=== PATIENT | female | born 1945 | race Caucasian/White ===

== ENCOUNTER → 2016-10-08 | Outpatient (CLI) | payer OTHER ==
[~2016-10-08] MED LIST: ALPRAZOLAM0.5 M3 PO; AMLODIPINE BESY10 MG PO; ANAPROX DS550 MG PO; ATIVAN1 MG PO; BACTRIM DS 8001 TA1 PO; BUMETANIDE2 MG PO; CARVEDILOL3.125 MG PO; COREG12.5 M1 PO; COREG25 MG PO; DILANTIN; DILANTIN100 MG PO; DIOVAN HCT 25 M1 TA5 PO; DOXYCYCLINE100 M1; EPI-PEN1 MG/ML MR; HYDROCHLOROTHIA25 MG PO; HYDROCHLOROTHIAZIDE; HYZAAR 25 MG-101 TA1 PO; HYZAAR 50/12.5M1 TAB PO; Hyzaar 25 MG-101 TAB PO; K-DUR 20MEQ20 MEQ PO; KLOR-CON; LANSOPRAZOLE30 MG PO; LOPRESSOR25 MG PO; LOSARTAN HCTZ; LOSARTAN POTAS100 M1 PO; LOSARTAN POTAS100 MG; MOTRIN800 MG PO; OMEPRAZOLE DR20 M1; PHENYTOIN SODI100 MG PO; PRAVACHOL20 MG PO; PREVACID15 M1 PO; PREVACID30 MG PO; PRILOSEC20 MG PO; SEPTRA DS 800 M1 TAB PO; XARE20MG PO; ZANTAC150 MG PO
[2016-10-08 09:53] LABS: HEMATOCRIT 36.9 % (37.0-47.0); HEMOGLOBIN 11.8 g/dl (12.0-16.0); MEAN CELL VOLUME 92.5 fl (81.0-99.0); MEAN CORPUSCULAR HGB 29.6 pg (27.0-31.0); MEAN PLATELET VOLUME 10.7 fl (9.6-12.3); RED BLOOD COUNT 3.99 10*6/uL (4.10-5.10); RED CELL DISTRI WIDTH 13.2 % (0-14.5); WHITE BLOOD COUNT 7.3 10*3/uL (4.8-10.8)
[2016-10-08 10:05] LABS: CHOLESTEROL 227 mg/dL (<200); HDL CHOLESTEROL 69 mg/dl (40-60); LDL CHOLESTEROL 143 mg/dL (9-159); TRIGLYCERIDES 73 mg/dl (<150); VLDL CHOLESTEROL 15 mg/dL (6-40)
[2016-10-08 10:06] LABS: ALBUMIN 3.2 gm/dl (3.1-4.5); ALKALINE PHOSPHATASE 170 U/L (45-117); BILIRUBIN, TOTAL 0.3 mg/dl (0.2-1.0); BUN 13 mg/dl (7-24); CARBON DIOXIDE 30 mmol/L (21-32); CHLORIDE 108 mmol/L (98-107); EST GLOM FILT AFRICAN AMERICAN > 60 ml/min; GLUCOSE 91 mg/dL (65-99); POTASSIUM 3.8 mmol/L (3.5-5.1); SGOT/AST 13 IU/L (3-35); SGPT/ALT 14 U/L (12-78); SODIUM 145 mmol/L (136-145); TOTAL PROTEIN 7.3 gm/dL (6.4-8.2)
== END | disposition home or self-care (01) ==
LOC: LAB 09:16
PROVIDERS: Family Medicine
DX: I10 Essential (primary) hypertension (principal); E78.00 Pure hypercholesterolemia, unspecified; E55.9 Vitamin D deficiency, unspecified

== ENCOUNTER 2017-01-04 12:36 | Emergency (ER) | payer OTHER ==
[~2017-01-04] VITALS: Wt 89.8 kg
[2017-01-04 12:51] VITALS: BP 174/100
[2017-01-04] MEDS ORDERED: HYDROCHLOROTHIA25 M1 PO (12:53)
[2017-01-04] MEDS ORDERED: HYDROCODONE BIT1 T11 PO (14:46)
== END 2017-01-04 14:52 | disposition home or self-care (01) ==
LOC: ED 12:36
DX: M25.512 Pain in left shoulder (principal); Z90.49 Acquired absence of other specified parts of digestive tract; Z90.710 Acquired absence of both cervix and uterus; Z79.899 Other long term (current) drug therapy

== ENCOUNTER 2017-04-05 07:33 | Emergency (ER) | payer OTHER ==
[~2017-04-05] VITALS: Ht 157.4 cm; Wt 81.6 kg
[~2017-04-05 07:33] MED LIST changes: +HYDROCHLOROTHIA25 M1 PO; +HYDROCODONE BIT1 T11 PO
[2017-04-05 07:37] VITALS: BP 150/52
[2017-04-05] MEDS ORDERED: PREDNISONE50 MG PO (07:54)
== END 2017-04-05 08:05 | disposition home or self-care (01) ==
LOC: ED 07:33
DX: L25.9 Unspecified contact dermatitis, unspecified cause (principal); I48.91 Unspecified atrial fibrillation; Z90.49 Acquired absence of other specified parts of digestive tract; Z79.899 Other long term (current) drug therapy

== ENCOUNTER 2017-04-24 07:10 | Emergency (ER) | payer OTHER ==
[~2017-04-24] VITALS: Ht 157.4 cm; Wt 86.6 kg
[~2017-04-24 07:10] MED LIST changes: +PREDNISONE50 MG PO
[2017-04-24] MEDS ORDERED: PROPAFENONE HC225 MG PO (07:17)
[2017-04-24] MEDS ORDERED: OMEPRAZOLE40 MG PO (07:18)
[2017-04-24] MEDS ORDERED: VITAMIN D32000 UNIT PO (07:18)
[2017-04-24] MEDS ORDERED: LABETALOL HCL100 MG PO (07:18)
[2017-04-24 07:19] VITALS: BP 149/52
[2017-04-24] MEDS ORDERED: BENADRYL ALLERG25 M5 PO (07:32)
[2017-04-24] MEDS ORDERED: PREDNISONE20 M1 PO (07:32)
== END 2017-04-24 07:47 | disposition home or self-care (01) ==
LOC: ED 07:10
DX: L23.9 Allergic contact dermatitis, unspecified cause (principal); I48.91 Unspecified atrial fibrillation; Z90.710 Acquired absence of both cervix and uterus; Z90.49 Acquired absence of other specified parts of digestive tract; Z79.899 Other long term (current) drug therapy

== ENCOUNTER → 2017-06-16 | Outpatient (CLI) | payer OTHER ==
[~2017-06-16] MED LIST changes: +BENADRYL ALLERG25 M5 PO; +LABETALOL HCL100 MG PO; +OMEPRAZOLE40 MG PO; +PREDNISONE20 M1 PO; +PROPAFENONE HC225 MG PO; +VITAMIN D32000 UNIT PO
== END | disposition home or self-care (01) ==
LOC: LAB 10:48
DX: T42.0X1A Poisoning by hydantoin derivatives, accidental (unintentional), initial encounter (principal)

== ENCOUNTER → 2017-06-30 | Outpatient (CLI) | payer OTHER | END | disposition home or self-care (01) | LOC: LAB 10:08 | DX: Z02.83 Encounter for blood-alcohol and blood-drug test (principal); T42.0X5A Adverse effect of hydantoin derivatives, initial encounter ==

== ENCOUNTER → 2017-07-08 | Outpatient (CLI) | payer OTHER | END | disposition home or self-care (01) | LOC: LAB 09:01 | DX: G40.909 Epilepsy, unspecified, not intractable, without status epilepticus (principal) ==

== ENCOUNTER → 2017-08-07 | Outpatient (CLI) | payer OTHER ==
[2017-08-07 10:05] LABS: BUN 7 mg/dl (7-24); CHLORIDE 104 mmol/L (98-107); PHENYTOIN (DILANTIN) 18.3 ug/ml (10-20); POTASSIUM 3.8 mmol/L (3.5-5.1); SODIUM 142 mmol/L (136-145)
== END | disposition home or self-care (01) ==
LOC: LAB 09:11
PROVIDERS: Internal Medicine
DX: G40.909 Epilepsy, unspecified, not intractable, without status epilepticus (principal); E87.6 Hypokalemia

== ENCOUNTER → 2017-08-26 | Outpatient (CLI) | payer OTHER | END | disposition home or self-care (01) | LOC: LAB 09:07 | DX: G40.909 Epilepsy, unspecified, not intractable, without status epilepticus (principal) ==

== ENCOUNTER → 2017-09-05 | Outpatient (CLI) | payer OTHER | END | disposition home or self-care (01) | LOC: US 12:38 | DX: N18.3 Chronic kidney disease, stage 3 (moderate) (principal) ==

== ENCOUNTER 2017-09-10 18:17 | Emergency (ER) | payer OTHER ==
[~2017-09-10] VITALS: Ht 157.4 cm; Wt 68.5 kg
[2017-09-10 18:30] VITALS: BP 190/48
== END 2017-09-10 21:51 | disposition home or self-care (01) ==
LOC: ED 18:17
DX: S80.12XA Contusion of left lower leg, initial encounter (principal); Z90.49 Acquired absence of other specified parts of digestive tract; Z79.899 Other long term (current) drug therapy; Z90.710 Acquired absence of both cervix and uterus; W17.89XA Other fall from one level to another, initial encounter; Y93.89 Activity, other specified; Y92.89 Other specified places as the place of occurrence of the external cause; Y99.8 Other external cause status

== ENCOUNTER 2017-12-20 09:47 | Inpatient (IN) | payer OTHER ==
[~2017-12-20] VITALS: Ht 157 cm; Wt 68.0 kg
--- NOTE | ~2017-12-20 | EKG ---
[place], [place] ELECTROCARDIOGRAM REPORT NAME: ANGEL RODRIGEZ UNIT #: [id number] ROOM: 503 DOCTOR: GIORGI OLSON MD BIRTHDATE: [birth year] DOS: 12/20/2017 TIME: 1535 hours. FINDINGS: 1. Sinus bradycardia at 48 beats per minute. 2. Minimal criteria for LVH. 3. Nonspecific T-waves in chest leads. 4. No significant change from an ECG done earlier in the day. GIORGI OLSON MD CM:EKGRPT:ELECTROCARDIOGRAM REPORT 1350 1828 GIORGI OLSON MD
--- NOTE | ~2017-12-20 | EKG ---
[place], [place] ELECTROCARDIOGRAM REPORT NAME: ANGEL RODRIGEZ UNIT #: [id number] ROOM: 503 DOCTOR: GIORGI OLSON MD BIRTHDATE: [birth year] DOS: 12/20/2017 TIME: 1333 hours. FINDINGS: 1. Now is sinus bradycardia at 48 beats per minute. 2. Minimal criteria for LVH. 3. An abnormal ECG. 4. No significant change from the ECG done earlier in the day. GIORGI OLSON MD CM:EKGRPT:ELECTROCARDIOGRAM REPORT 1350 1827 GIORGI OLSON MD
--- NOTE | ~2017-12-20 | EKG ---
[place], [place] ELECTROCARDIOGRAM REPORT NAME: ANGEL RODRIGEZ UNIT #: [id number] ROOM: 503 DOCTOR: GIORGI OLSON MD BIRTHDATE: [birth year] DOS: 12/20/2017 TIME: 0952 hours. FINDINGS: 1. Normal sinus rhythm at 55 beats per minute. 2. Minimal prolonged QRS interval. 3. Minimal criteria for LVH. 4. No previous tracing is available for comparison. GIORGI OLSON MD CM:EKGRPT:ELECTROCARDIOGRAM REPORT 1350 1825 GIORGI OLSON MD
--- NOTE | ~2017-12-20 | CON ---
[place], [place] REPORT OF CONSULTATION NAME[id number] UNIT #: [id number] ROOM: 503 DOCTOR: GIORGI OLSON MD BIRTHDATE: [birth year] DOS: 12/20/2017 HISTORY OF PRESENT ILLNESS: This is a very pleasant 72-year-old -[place] woman with a history of atrial fibrillation, but has been in sinus rhythm. She has never had a heart attack, heart failure or cancer. No COPD. She has essential hypertension and also has a seizure disorder. She had electrical cardioversion in the remote past. She has had a hysterectomy, cardiac catheterization with no significant coronary artery problems and cholecystectomy. She was working in the house and bent over to pickling operator something and had pinch like feeling over the left lateral part of the chest and in the left armpit. She got up and the feeling disappeared in about 3 minutes. She leaned over to pickling operator a stool and same thing happened again, pain disappeared rather rapidly. There was no accompanying nausea, sweating, shortness of breath, or palpitations. She has not had any swelling of the lower extremities or orthopnea. She is a very active lady without any cardiac symptoms. She has never smoked cigarettes, never used alcoholic beverages. HOME MEDICATIONS: Include Xarelto 20 daily, propafenone 225 mg every 8 hours, omeprazole 40 mg daily, phenytoin, hydrochlorothiazide, labetalol 100 at bedtime, amlodipine 10 mg daily. PHYSICAL EXAMINATION: GENERAL: This reveals a patient who is very pleasant, alert. She is full of life, very lively, good complexion. There is no jaundice or cyanosis. Thyromegaly is not present. There is no finger clubbing. VITAL SIGNS: Pulse is 54 regular, blood pressure 122/57. NECK: JVP is normal. AJR is negative. No bruit in the neck. HEART: There is no cardiomegaly, no murmurs are present. EXTREMITIES: Excellent pedal pulses and no edema in the lower extremities. CHEST: Clear to percussion and auscultation. There is no chest wall tenderness. ABDOMEN: Supple, nontender. No organomegaly or bruit. DIAGNOSTIC STUDIES: Three ECGs have shown sinus bradycardia, normal pattern and troponin I levels are normal. IMPRESSION: This patient most likely had muscle spasm that caused some brief episodes of chest pain. It has all resolved and she feels fine from cardiac standpoint, no further workup is necessary and she may be discharged home. I thank for this consult. [place], [place] REPORT OF CONSULTATION NAME: ANGEL RODRIGEZ UNIT #: [id number] ROOM: [facility] DOCTOR: GIORGI OLSON MD BIRTHDATE: [birth year] GIORGI OLSON MD CM:CONSTR:REPORT OF CONSULTATION 1736 12/20/17 2201 interface
[2017-12-20 09:52] VITALS: BP 179/57
[2017-12-20] MEDS ORDERED: HYDR25T PO (09:59)
[2017-12-20] MEDS ORDERED: NORVASC10 MG PO (09:59)
[2017-12-20 10:02] LABS: BASO # 0.1 10*3/uL (0.0-0.1); BASO % 0.7 % (0.0-1.0); EOS # 0.1 10*3/uL (0.0-0.4); EOS % 1.6 % (1.0-4.0); HEMATOCRIT 38.2 % (37.0-47.0); HEMOGLOBIN 12.4 g/dl (12.0-16.0); LYMPH # 1.7 10*3/uL (1.3-4.4); LYMPH % 23.1 % (27.0-41.0); MEAN CORPUSCULAR HGB 29.5 pg (27.0-31.0); MEAN CORPUSCULAR HGB CONC 32.5 g/dl (33.0-37.0); MEAN PLATELET VOLUME 10.2 fl (9.6-12.3); MONO # 0.8 10*3/uL (0.1-1.0); MONO % 10.7 % (3.0-9.0); NEUT # 4.7 10*3/uL (2.3-7.9); NEUT % 63.6 % (47.0-73.0); PLATELET COUNT AUTOMATED 226 10*3/uL (130-400); RED CELL DISTRI WIDTH 13.1 % (0-14.5); WHITE BLOOD COUNT 7.3 10*3/uL (4.8-10.8)
[2017-12-20 10:11] LABS: ACT PARTIAL THROMBO TIME 29.1 SECONDS (20.8-31.5); INTERNATIONAL NORM RATIO 1.1 (2.0-3.5)
[2017-12-20 10:22] VITALS: BP 138/52
[2017-12-20 10:22] LABS: ALBUMIN 3.5 gm/dl (3.1-4.5); ALKALINE PHOSPHATASE 178 U/L (45-117); BUN 10 mg/dl (7-24); CHLORIDE 99 mmol/L (98-107); CREATININE 1.06 mg/dL (0.55-1.02); POTASSIUM 3.5 mmol/L (3.5-5.1); SGOT/AST 15 IU/L (3-35); SGPT/ALT 15 U/L (12-78); SODIUM 136 mmol/L (136-145); TOTAL PROTEIN 7.6 gm/dL (6.4-8.2)
[2017-12-20 10:24] LABS: TROPONIN I < 0.015 ng/ml (<0.045)
[2017-12-20] MEDS ORDERED: DILANTIN30 MG PO (11:10)
[2017-12-20 12:00] VITALS: BP 160/86
[2017-12-20] MEDS ORDERED: PHENYTOIN100 MG PO (13:22)
[2017-12-20 16:00] VITALS: BP 122/54
[2017-12-20 20:00] VITALS: BP 131/42
[2017-12-21] VITALS: BP 117/54
[2017-12-21 06:51] LABS: ALBUMIN 3.1 gm/dl (3.1-4.5); ALKALINE PHOSPHATASE 162 U/L (45-117); BUN 11 mg/dl (7-24); CHLORIDE 101 mmol/L (98-107); CREATININE 0.99 mg/dL (0.55-1.02); POTASSIUM 3.6 mmol/L (3.5-5.1); SGOT/AST 14 IU/L (3-35); SGPT/ALT 14 U/L (12-78); SODIUM 139 mmol/L (136-145); TOTAL PROTEIN 6.9 gm/dL (6.4-8.2)
[2017-12-21 08:00] VITALS: BP 150/49
== END 2017-12-21 12:02 | disposition home or self-care (01) | DRG 205 ==
LOC: ED 09:47 → 5E 10:46
PROVIDERS: Internal Medicine; Nurse Practitioner Family
DX: M94.0 Chondrocostal junction syndrome [Tietze] (principal); N17.0 Acute kidney failure with tubular necrosis; I48.2 Chronic atrial fibrillation; G40.909 Epilepsy, unspecified, not intractable, without status epilepticus; E83.51 Hypocalcemia; Z82.49 Family history of ischemic heart disease and other diseases of the circulatory system; Z83.3 Family history of diabetes mellitus; Z90.49 Acquired absence of other specified parts of digestive tract; R00.1 Bradycardia, unspecified; Z90.710 Acquired absence of both cervix and uterus; Z91.81 History of falling

== ENCOUNTER 2018-07-13 18:30 | Emergency (ER) | payer OTHER ==
[~2018-07-13] VITALS: Ht 157.4 cm; Wt 64.4 kg
[~2018-07-13 18:30] MED LIST changes: +DILANTIN30 MG PO; +HYDR25T PO; +NORVASC10 MG PO; +PHENYTOIN100 MG PO
[2018-07-13 18:33] VITALS: BP 168/59
== END 2018-07-13 20:48 | disposition home or self-care (01) ==
LOC: ED 18:30
DX: R51 Headache (principal); Z79.899 Other long term (current) drug therapy

== ENCOUNTER 2018-08-08 10:52 | Emergency (ER) | payer OTHER ==
[~2018-08-08] VITALS: Ht 157.4 cm; Wt 68.5 kg
[2018-08-08 10:55] VITALS: BP 161/91
== END 2018-08-08 11:58 | disposition home or self-care (01) ==
LOC: ED 10:52
DX: S29.012A Strain of muscle and tendon of back wall of thorax, initial encounter (principal); I10 Essential (primary) hypertension; I48.91 Unspecified atrial fibrillation; G40.909 Epilepsy, unspecified, not intractable, without status epilepticus; Z79.899 Other long term (current) drug therapy; X58.XXXA Exposure to other specified factors, initial encounter; Y93.89 Activity, other specified; Y92.89 Other specified places as the place of occurrence of the external cause; Y99.8 Other external cause status

== ENCOUNTER 2018-10-28 22:04 | Inpatient (IN) | payer OTHER ==
[2018-10-28] VITALS (7 sets, daily range): BP systolic 131–174; BP diastolic 67–109
[~2018-10-28] VITALS: Ht 157.4 cm; Wt 73.9 kg
--- NOTE | ~2018-10-28 | PR ---
[place], [place] PROGRESS NOTE NAME: ANGEL RODRIGEZ [facility] #: [id number] UNIT #: [id number] ROOM: 424 DOCTOR: GIORGI OLSON MD BIRTHDATE: [birth year] DOS: SUBJECTIVE: She was admitted with atrial flutter with rapid rate and was started on amiodarone 400 t.i.d. She has been chronically anticoagulated with Xarelto. She claims she has not felt this well for the last couple of months. Her heart rate is in the 60s now. She walked without shortness of breath or any chest pain or palpitation. OBJECTIVE: GENERAL: She is alert, oriented, very pleasant lady. VITAL SIGNS: Pulse is 64, irregular, blood pressure 152/56. NECK: JVP normal. LUNGS: Clear. EXTREMITIES: No edema in lower extremity. Monitor shows atrial flutter with a controlled ventricular rate. IMPRESSION: Atrial flutter with a controlled ventricular rate. She should continue on amiodarone 400 t.i.d. for 3 days, then 200 mg once a day, and I will be seeing her in the office shortly, and if she remains in atrial flutter then electrical cardioversion will be attempted. From cardiac standpoint, she can be discharged home. GIORGI OLSON MD CM:PNTRANS [id number] 1329 GIORGI OLSON MD 10/30/18 1329 interface
--- NOTE | ~2018-10-28 | EKG ---
[place], [place] ELECTROCARDIOGRAM REPORT NAME: ANGEL RODRIGEZ UNIT #: [id number] ROOM: 424 DOCTOR: SHEA DRAFT REPORT BIRTHDATE: [birth year] [facility] Test Date: 2018-10-28 Test Time: 22:04:35 Pat Name: ANGEL RODRIGEZ Department: Room: 424 Gender: F Entry Level Automotive Technician: : 1945 Requested By: CARON DELGADO Order Number: [id number] Reading MD: Jolie Busby MD Measurements Intervals [place] Rate: 127 P: PA: QRS: -8 QRSD: 158 T: 140 QT: 382 QTc: 556 Interpretive Statements Atrial flutter with varied AV block, Left bundle branch block Baseline wander in lead(s) V6 Electronically Signed On 10-30-2018 9:36:12 PST by Jolie Busby MD CM:EKGRPT:ELECTROCARDIOGRAM REPORT 03 0936 CARON ROBLEDO DRAFT REPORT CARON DELGADO DO
--- NOTE | ~2018-10-28 | EKG ---
[place], [place] ELECTROCARDIOGRAM REPORT NAME: ANGEL RODRIGEZ UNIT #: [id number] ROOM: 424 DOCTOR: SHEA DRAFT REPORT BIRTHDATE: [birth year] [facility] Test Date: 2018-10-29 Test Time: 04:05:51 Pat Name: ANGEL RODRIGEZ Department: Room: 424 Gender: F Passementerie Worker: Martha Jones : 1945 Requested By: CARON DELGADO Order Number: [id number] Reading MD: Jolie Busby MD Measurements Intervals [place] Rate: 94 P: [place]: QRS: 8 QRSD: 101 T: -3 QT: 389 QTc: 487 Interpretive Statements Atrial flutter with predominant 3:1 AV block Borderline repolarization abnormality Borderline prolonged QT interval Partial missing lead(s): V4 Electronically Signed On 10-30-2018 9:36:35 PST by Jolie Busby MD CM:EKGRPT:ELECTROCARDIOGRAM REPORT 0405 0936 CARON ROBLEDO DRAFT REPORT CARON DELGADO DO
--- NOTE | ~2018-10-28 | EKG ---
[place], [place] ELECTROCARDIOGRAM REPORT NAME: ANGEL RODRIGEZ UNIT #: [id number] ROOM: 424 DOCTOR: SHEA DRAFT REPORT BIRTHDATE: [birth year] [facility] Test Date: 2018-10-29 Test Time: 00:52:49 Pat Name: ANGEL RODRIGEZ Department: Room: 424 Gender: F Welding Estimator: Annamaria Thomson : 1945 Requested By: CARON DELGADO Order Number: [id number] Reading MD: Jolie Busby MD Measurements Intervals [place] Rate: 106 P: RI: QRS: -15 QRSD: 151 T: 148 QT: 400 QTc: 532 Interpretive Statements Atrial flutter Left bundle branch block Electronically Signed On 10-30-2018 9:36:18 PST by Jolie Busby MD CM:EKGRPT:ELECTROCARDIOGRAM REPORT 0052 0936 CARON ROBLEDO DRAFT REPORT CARON DELGADO DO
--- NOTE | ~2018-10-28 | CON ---
[place], [place] REPORT OF CONSULTATION NAME[id number] UNIT #: [id number] ROOM: 424 DOCTOR: GIORGI OLSON MD BIRTHDATE: [birth year] DOS: 10/29/2018 HISTORY OF PRESENT ILLNESS: This is a 73-year-old -[place] woman whom I have known for many years. I see her in the office on a regular basis for atrial fibrillation that had been maintained in sinus rhythm with propafenone. She has never had any heart attack, heart failure, stroke, and does not have COPD. She has had GERD, arthritis of the shoulders, essential hypertension, osteoarthritis, seizure disorder, has had hysterectomy, and cataract surgery as well as cholecystectomy. She has never smoked cigarettes, does not use alcoholic beverages. Lives at home. She is a reasonably active lady. She came to the Emergency Department because of left lateral chest pain and also pain of this left scapular area. Earlier she had been moving furniture and pains started soon thereafter. She did not have any anterior chest pain or pressure, nor any jaw discomfort or neck discomfort. Previously, she has not had any exertional symptoms. No PND, orthopnea, or swelling of the lower extremities. REVIEW OF SYSTEMS: No nausea, vomiting, blood in the stool or dark stools. Has not had any hematuria. She has not had any neurological symptoms. HOME MEDICATIONS: Include amlodipine 10 daily, hydrochlorothiazide 25 daily, losartan 100 daily, propafenone 225 mg every 8 hours, and rivaroxaban 20 mg daily and phenytoin 30 mg b.i.d. PHYSICAL EXAMINATION: GENERAL: The patient who is very pleasant, alert. She is comfortable. She stated she is not cyanotic or jaundiced. There is no thyromegaly or finger clubbing. VITAL SIGNS: Pulse is regular at 96 beats per minute with occasional irregularity. Blood pressure 130/76. NECK: Normal JVP. AJR is negative. There is no carotid bruit. HEART: There is no cardiomegaly. No murmurs or rubs present. EXTREMITIES: There is no edema in the lower extremities. Excellent pedal pulses bilaterally. RESPIRATORY: Lungs are clear to percussion and auscultation with good breath sounds and she is not tachypneic. There is no chest wall tenderness. ABDOMEN: Supple, nontender. There is no pulsatile mass and the liver is not enlarged. DIAGNOSTIC STUDIES: First ECG done in the Emergency Department demonstrated atrial flutter with variable AV conduction and a complete left bundle-branch block. A second ECG showed atrial fibrillation with intermittent left bundle branch block, which is likely to be raised rate dependent and the third ECG done earlier this morning demonstrated atrial flutter with variable AV conduction and monitor continues to show atrial flutter. Chest x-ray is unremarkable. LABORATORY DATA: Normal. The Troponin level less than 0.015. [place], [place] REPORT OF CONSULTATION NAME: ANGEL RODRIGEZ UNIT #: [id number] ROOM: 424 DOCTOR: WESLEY ALEJO,GIORGI BIRTHDATE: [birth year] IMPRESSION: 1. Acute chest pain was most likely muscular pain form stained muscles resulting from moving furniture. Symptom has resolved and I do not believe that she requires any further cardiac workup. 2. She has had a history of atrial fibrillation and now has atrial flutter with a variable AV conduction and almost rate dependent complete left bundle branch block. RECOMMENDATIONS: I think it is a good idea to discontinue propafenone altogether, and after 2 days of drug free period, amiodarone at a dose of 400 mg t.i.d. will be started for about 3 days and then dose should be reduced to 200 mg once a day. She is likely to revert to normal sinus rhythm. If she does not then electrical cardioversion will be attempted at a later date as outpatient. Xarelto should be continued. There is no evidence of cardiac decompensation. Thank you for this consult. GIORGI OLSON MD CM:CONSTR:REPORT OF CONSULTATION 1105 10/29/18 1317 interface
[2018-10-28 22:18] LABS: BASO % 0.4 % (0.0-1.0); EOS # 0.2 10*3/uL (0.0-0.4); EOS % 1.4 % (1.0-4.0); HEMATOCRIT 40.7 % (37.0-47.0); HEMOGLOBIN 13.4 g/dl (12.0-16.0); LYMPH # 1.7 10*3/uL (1.3-4.4); MEAN CELL VOLUME 95.3 fl (81.0-99.0); MEAN CORPUSCULAR HGB 31.4 pg (27.0-31.0); MEAN CORPUSCULAR HGB CONC 32.9 g/dl (33.0-37.0); MEAN PLATELET VOLUME 10.9 fl (9.6-12.3); MONO # 1.2 10*3/uL (0.1-1.0); MONO % 10.6 % (3.0-9.0); NEUT # 8.1 10*3/uL (2.3-7.9); NEUT % 72.2 % (47.0-73.0); PLATELET COUNT AUTOMATED 248 10*3/uL (130-400); RED BLOOD COUNT 4.27 10*6/uL (4.10-5.10); RED CELL DISTRI WIDTH 12.9 % (0-14.5); WHITE BLOOD COUNT 11.2 10*3/uL (4.8-10.8)
[2018-10-28 22:27] LABS: ACT PARTIAL THROMBO TIME 33.5 SECONDS (20.8-31.5); INTERNATIONAL NORM RATIO 1.1 (2.0-3.5)
[2018-10-28 22:34] LABS: ALBUMIN 3.7 gm/dl (3.1-4.5); ALKALINE PHOSPHATASE 189 U/L (45-117); BUN 11 mg/dl (7-24); CHLORIDE 106 mmol/L (98-107); CREATININE 1.07 mg/dL (0.55-1.02); POTASSIUM 3.8 mmol/L (3.5-5.1); SGOT/AST 19 IU/L (3-35); SGPT/ALT 14 U/L (12-78); SODIUM 139 mmol/L (136-145); TOTAL PROTEIN 7.8 gm/dL (6.4-8.2)
[2018-10-28 22:37] LABS: TROPONIN I < 0.015 ng/ml (<0.045)
--- NOTE | 2018-10-28 23:01 | NUR ---
PATIENT DENIES ANY PAIN AT THIS TIME. RESPIRATIONS EASY, NON-LABORED ON ROOM AIR. FRIEND AT THE BEDSIDE. NO DISTRESS NOTED. RN WILL CONTINUE TO MONITOR.
[2018-10-29] VITALS (9 sets, daily range): BP systolic 125–161; BP diastolic 51–94
--- NOTE | 2018-10-29 00:18 | NUR ---
PATIENT DENIES ANY WOUNDS AT THIS TIME. NO WOUNDS NOTED TO UPPER TORSO WHEN PATIENT PLACED IN GOWN. PATIENT REQUESTING TO LEAVE PANTS AND SHOES ON UNTIL SHE GETS TO HER ROOM UPSTAIRS ON THE FLOOR.
--- NOTE | 2018-10-29 00:29 | NUR ---
PER CHARLEEN MORAES THE BED IN 424 IS BEING MADE NOW. WILL TAKE PATIENT UPSTAIRS SHORTLY.
--- NOTE | 2018-10-29 00:39 | NUR ---
[facility] [phone]
--- NOTE | 2018-10-29 01:18 | NUR ---
A 73, admitted to , under the services of DHIRAJ Vides MD with a diagnosis of CHEST PAIN, AFIB WITH RVR. Chief complaint is CHEST PAIN. Patient arrived via stretcher from ER. Monitor applied. Initial assessment completed. Vital signs taken and recorded. DHIRAJ VIDES MD notified of admission to the unit. Orders received. See assessment for past medical history, medications and allergies. Patient and/or family oriented to unit. [facility] visitation policy reviewed. Clothing/patient valuable form completed. PAIGE CARO
--- NOTE | 2018-10-29 01:56 | NUR ---
AWARE ON NANDRA CONSULT STATED HE WILL SEE AT IN THE MORNING AT 6AM
--- NOTE | 2018-10-29 04:00 | NUR ---
PATIENT IS ASLEEP. CALL LIGHT WITHIN REACH.
--- NOTE | 2018-10-29 04:46 | NUR ---
24 HR chart check completed.
--- NOTE | 2018-10-29 07:59 | NUR ---
MEDICATED WITH PRN PO TYLENOL FOR BACK ACHING.
--- NOTE | 2018-10-29 09:00 | NUR ---
PRN PO TYLENOL EFFECTIVE, PER PATIENT.
--- NOTE | 2018-10-29 10:27 | NUR ---
Principal Network Engineer in to talk to patient. Patient states lives at home alone with her sister living next door. There are 2 steps in the home. Physician: Dr. Luis Medrano [facility]: [facility] Home health services: none Patient's level of ADLs: INDEPENDENT Patient has working utilities: yes DME: none Follow-up physician's appointment after d/c: she prefers to make her own follow up appt after discharge Does patient want to access PORTAL?: no Discharge plan discussed with patient. She lives at home alone with her sister living next door. She is independent in her ADLs and ambulation. Discussed home health care services and she denies any home needs at this time. When medically stable she will be discharged to home. PEDRO PABLO FREEDMAN
--- NOTE | 2018-10-29 11:13 | NUR ---
DR. OLSON IN TO SEE PATIENT RE: PLAN OF CARE. NEW ORDERS ENTERED TO CHANGE RHYTHMOL PO TO AMIODARONE PO STARTING TOMORROW, NO FURTHER CARDIAC WORK-UP NEEDED, PER DR. OLSON.
[2018-10-30] VITALS: BP 140/75
[2018-10-30 06:30] LABS: BASO % 0.2 % (0.0-1.0); EOS % 0.1 % (1.0-4.0); HEMATOCRIT 38.6 % (37.0-47.0); HEMOGLOBIN 12.7 g/dl (12.0-16.0); LYMPH # 1.3 10*3/uL (1.3-4.4); LYMPH % 12.4 % (27.0-41.0); MEAN CELL VOLUME 93.7 fl (81.0-99.0); MEAN CORPUSCULAR HGB 30.8 pg (27.0-31.0); MEAN CORPUSCULAR HGB CONC 32.9 g/dl (33.0-37.0); MEAN PLATELET VOLUME 11.2 fl (9.6-12.3); MONO # 0.5 10*3/uL (0.1-1.0); MONO % 5.3 % (3.0-9.0); NEUT # 8.2 10*3/uL (2.3-7.9); NEUT % 81.4 % (47.0-73.0); PLATELET COUNT AUTOMATED 259 10*3/uL (130-400); RED BLOOD COUNT 4.12 10*6/uL (4.10-5.10); RED CELL DISTRI WIDTH 12.7 % (0-14.5); WHITE BLOOD COUNT 10.1 10*3/uL (4.8-10.8)
[2018-10-30 06:52] LABS: ALKALINE PHOSPHATASE 153 U/L (45-117); BUN 13 mg/dl (7-24); CHLORIDE 108 mmol/L (98-107); CREATININE 0.87 mg/dL (0.55-1.02); FREE T4 0.98 ng/dl (0.76-1.46); POTASSIUM 3.9 mmol/L (3.5-5.1); SGOT/AST 7 IU/L (3-35); SGPT/ALT 9 U/L (12-78); SODIUM 142 mmol/L (136-145); TOTAL PROTEIN 6.9 gm/dL (6.4-8.2)
[2018-10-30 08:00] VITALS: BP 152/56
--- NOTE | 2018-10-30 09:00 | NUR ---
Uniform Room Attendant in to see patient. No new needs or request at this time. She denies any home needs. When medically stable she will be discharged to home.
[2018-10-30 12:00] VITALS: BP 150/60
[2018-10-30] MEDS ORDERED: PACERONE200 MG PO ×2 (13:54→14:03)
--- NOTE | 2018-10-30 14:00 | NUR ---
Discharge instructions reviewed with patient/family. Patient receptive and verbalizes understanding. Follow-up care arranged WITH CARDIOLOGY AND PCP. Written instructions given TO PATIENT. DISCHARGE PAPERWORK REVIEWED AND SGNED. HEPLOCK REMOVED, GENERATOR TECHNICIAN REMOVED. PATIENT TAKEN OFF THE FLOOR VIA WHEELCHAIR WITH FAMILY MEMBERS. ANUPAMA PETIT
[2018-10-30] MEDS ORDERED: AMIODARONE HYD200 MG PO (14:05)
== END 2018-10-30 14:00 | disposition home or self-care (01) | DRG 562 ==
LOC: ED 22:04 → 4E 10-29 00:13 → EDHOLD 10-29 00:13 → 4E 10-29 00:29
PROVIDERS: Emergency Medicine; Family Medicine; ADMIT Internal Medicine
DX: S29.011A Strain of muscle and tendon of front wall of thorax, initial encounter (principal); N17.0 Acute kidney failure with tubular necrosis; I48.91 Unspecified atrial fibrillation; M19.012 Primary osteoarthritis, left shoulder; I25.2 Old myocardial infarction; K21.9 Gastro-esophageal reflux disease without esophagitis; G40.909 Epilepsy, unspecified, not intractable, without status epilepticus; Z90.710 Acquired absence of both cervix and uterus; Z98.49 Cataract extraction status, unspecified eye; Z81.8 Family history of other mental and behavioral disorders; Z80.0 Family history of malignant neoplasm of digestive organs; Z80.7 Family history of other malignant neoplasms of lymphoid, hematopoietic and related tissues; Z83.3 Family history of diabetes mellitus; Z82.49 Family history of ischemic heart disease and other diseases of the circulatory system; J40 Bronchitis, not specified as acute or chronic

== ENCOUNTER 2018-12-03 19:22 | Emergency (ER) | payer OTHER ==
[~2018-12-03] VITALS: Ht 157.4 cm; Wt 68.5 kg
[~2018-12-03 19:22] MED LIST changes: +AMIODARONE HYD200 MG PO; +PACERONE200 MG PO
[2018-12-03 19:25] VITALS: BP 152/70
== END 2018-12-03 20:05 | disposition home or self-care (01) ==
LOC: ED 19:22
DX: M54.6 Pain in thoracic spine (principal); G89.29 Other chronic pain; I48.91 Unspecified atrial fibrillation; K21.9 Gastro-esophageal reflux disease without esophagitis; I10 Essential (primary) hypertension; G40.909 Epilepsy, unspecified, not intractable, without status epilepticus; Z90.710 Acquired absence of both cervix and uterus; Z90.49 Acquired absence of other specified parts of digestive tract; Z79.899 Other long term (current) drug therapy

== ENCOUNTER 2019-02-03 18:36 | Inpatient (IN) | payer OTHER ==
[~2019-02-03] VITALS: Ht 154.9 cm; Wt 72.8 kg
[2019-02-03] VITALS (7 sets, daily range): BP systolic 156–174; BP diastolic 66–104
--- NOTE | ~2019-02-03 | EKG ---
[place], [place] ELECTROCARDIOGRAM REPORT NAME: ANGEL RODRIGEZ UNIT #: [id number] ROOM: 505 DOCTOR: SHEA DRAFT REPORT BIRTHDATE: [birth year] [facility] Test Date: 2019-02-04 Test Time: 00:18:30 Pat Name: ANGEL RODRIGEZ Department: Room: 505 Gender: F Neurocritical Care Physician: Jonathan Kc : 1945 Requested By: FABIO JARAMILLO Order Number: [id number] Reading MD: Varsha Thomson MD Measurements Intervals [place] Rate: 70 P: MS: QRS: 34 QRSD: 86 T: 15 QT: 457 QTc: 494 Interpretive Statements Atrial fibrillation Borderline repolarization abnormality Borderline prolonged QT interval Compared to ECG 10/29/2018 04:05:51 Atrial flutter no longer present AV block, advanced (high-grade) no longer present Electronically Signed On 02-06-2019 9:28:55 PDT by Varsha Thomson MD CM:EKGRPT:ELECTROCARDIOGRAM REPORT 0018 0928 FABIO ROBLEDO DRAFT REPORT FABIO JARAMILLO DO
--- NOTE | ~2019-02-03 | EKG ---
[place], [place] ELECTROCARDIOGRAM REPORT NAME: ANGEL RODRIGEZ UNIT #: [id number] ROOM: 505 DOCTOR: SHEA DRAFT REPORT BIRTHDATE: [birth year] [facility] Test Date: 2019-02-03 Test Time: 21:11:59 Pat Name: ANGEL RODRIGEZ Department: Room: 505 Gender: F Plumbing And Heating Mechanic: Jonathan Kc : 1945 Requested By: FABIO JARAMILLO Order Number: [id number] Reading MD: Varsha Thomson MD Measurements Intervals [place] Rate: 64 P: MA: QRS: 22 QRSD: 87 T: -7 QT: 436 QTc: 450 Interpretive Statements Atrial fibrillation Borderline repolarization abnormality Compared to ECG 10/29/2018 04:05:51 Atrial flutter no longer present AV block, advanced (high-grade) no longer present Electronically Signed On 02-06-2019 9:28:40 PDT by Varsha Thomson MD CM:EKGRPT:ELECTROCARDIOGRAM REPORT 10 7 FABIO ROBLEDO DRAFT REPORT FABIO JARAMILLO DO
--- NOTE | ~2019-02-03 | EKG ---
[place], [place] ELECTROCARDIOGRAM REPORT NAME: ANGEL RODRIGEZ UNIT #: [id number] ROOM: 505 DOCTOR: SHEA DRAFT REPORT BIRTHDATE: [birth year] [facility] Test Date: 2019-02-03 Test Time: 18:40:26 Pat Name: ANGEL RODRIGEZ Department: Room: 505 Gender: F Operations Administrative Assistant: : 1945 Requested By: FABIO JARAMILLO Order Number: [id number] Reading MD: Jolie Busby MD Measurements Intervals [place] Rate: 81 P: MS: QRS: 34 QRSD: 92 T: -41 QT: 443 QTc: 515 Interpretive Statements Atrial fibrillation/ flutter Nonspecific repol abnormality, diffuse leads Prolonged QT interval Compared to ECG 10/29/2018 04:05:51 Atrial flutter no longer present AV block, advanced (high-grade) no longer present Electronically Signed On 02-05-2019 14:30:30 PDT by Jolie Busby MD CM:EKGRPT:ELECTROCARDIOGRAM REPORT 1840 1430 FABIO ROBLEDO DRAFT REPORT FABIO JARAMILLO DO
[2019-02-03 19:06] LABS: BASO # 0.1 10*3/uL (0.0-0.1); BASO % 0.7 % (0.0-1.0); EOS # 0.1 10*3/uL (0.0-0.4); EOS % 1.3 % (1.0-4.0); HEMOGLOBIN 12.3 g/dl (12.0-16.0); MEAN CORPUSCULAR HGB 30.9 pg (27.0-31.0); MEAN CORPUSCULAR HGB CONC 33.2 g/dl (33.0-37.0); MEAN PLATELET VOLUME 10.3 fl (9.6-12.3); MONO # 0.6 10*3/uL (0.1-1.0); MONO % 8.7 % (3.0-9.0); PLATELET COUNT AUTOMATED 245 10*3/uL (130-400); RED BLOOD COUNT 3.98 10*6/uL (4.10-5.10); RED CELL DISTRI WIDTH 12.8 % (0-14.5); WHITE BLOOD COUNT 6.8 10*3/uL (4.8-10.8)
[2019-02-03 19:15] LABS: ACT PARTIAL THROMBO TIME 32.8 SECONDS (20.8-31.5); INTERNATIONAL NORM RATIO 1.2 (2.0-3.5)
[2019-02-03 19:22] LABS: ALBUMIN 3.7 gm/dl (3.1-4.5); ALKALINE PHOSPHATASE 140 U/L (45-117); BUN 8 mg/dl (7-24); CHLORIDE 108 mmol/L (98-107); CREATININE 0.88 mg/dL (0.55-1.02); POTASSIUM 3.4 mmol/L (3.5-5.1); SGOT/AST 18 IU/L (3-35); SGPT/ALT 13 U/L (12-78); SODIUM 145 mmol/L (136-145); TOTAL PROTEIN 7.1 gm/dL (6.4-8.2)
[2019-02-03 19:29] LABS: TROPONIN I < 0.015 ng/ml (<0.045)
--- NOTE | 2019-02-03 22:42 | NUR ---
A 73, admitted to , under the services of DHIRAJ Vides MD with a diagnosis of CHEST PAIN. Chief complaint is CHEST PAIN. Patient arrived via wheel chair from ER. Monitor applied. Initial assessment completed. Vital signs taken and recorded. DHIRAJ VIDES MD notified of admission to the unit. Orders received. See assessment for past medical history, medications and allergies. Patient and/or family oriented to unit. [facility] visitation policy reviewed. Clothing/patient valuable form completed. AJMESON ZHENG
[2019-02-03] MEDS ORDERED: OMEPRAZOLE40 MG PO (23:11)
[2019-02-03] MEDS ORDERED: ALEVE220 M1 PO (23:11)
[2019-02-03] MEDS ORDERED: KEPPRA500 MG PO (23:12)
[2019-02-03] MEDS ORDERED: AMIODARONE HYD200 MG PO (23:15)
[2019-02-03] MEDS ORDERED: XARE20MG PO (23:15)
[2019-02-03] MEDS ORDERED: VITAMIN D-32000 UNI1 PO (23:20)
[2019-02-03] MEDS ORDERED: SINEMET 10-1001 EACH PO (23:21)
[2019-02-03] MEDS ORDERED: ARICEPT5 M1 PO (23:22)
[2019-02-03] MEDS ORDERED: MOBIC7.5 MG PO (23:23)
[2019-02-03] MEDS ORDERED: LASIX40 MG PO (23:24)
[2019-02-03] MEDS ORDERED: KLOR-CON 1010 ME1 PO (23:24)
[2019-02-04] MEDS ORDERED: PHENYTOIN100 MG PO (00:23)
--- NOTE | 2019-02-04 01:16 | NUR ---
DR. PELAEZ NOTIFIED OF HOME MEDICATIONS BEING UP TO DATE AT AROUND 0030.
[2019-02-04 04:00] VITALS: BP 150/70
--- NOTE | 2019-02-04 04:00 | NUR ---
PATIENT IS SLEEPING WITH EASY AND REGULAR RESPERS ON ROOM AIR. CALL LIGHT IS WITHIN REACH.
--- NOTE | 2019-02-04 05:26 | NUR ---
0600 MEDICATIONS HELD D/T EGD THIS AM.
--- NOTE | 2019-02-04 06:00 | NUR ---
NO NEEDS VOICED AT THIS TIME. RESTING IN BED WITH EASY AND REGULAR RESPERS ON ROOM AIR.
[2019-02-04 06:14] LABS: BASO % 0.5 % (0.0-1.0); EOS # 0.1 10*3/uL (0.0-0.4); EOS % 1.7 % (1.0-4.0); HEMATOCRIT 35.7 % (37.0-47.0); HEMOGLOBIN 11.5 g/dl (12.0-16.0); LYMPH # 1.8 10*3/uL (1.3-4.4); LYMPH % 31.8 % (27.0-41.0); MEAN CELL VOLUME 92.7 fl (81.0-99.0); MEAN CORPUSCULAR HGB 29.9 pg (27.0-31.0); MEAN CORPUSCULAR HGB CONC 32.2 g/dl (33.0-37.0); MEAN PLATELET VOLUME 10.9 fl (9.6-12.3); MONO # 0.6 10*3/uL (0.1-1.0); MONO % 11.1 % (3.0-9.0); NEUT # 3.2 10*3/uL (2.3-7.9); NEUT % 54.6 % (47.0-73.0); PLATELET COUNT AUTOMATED 227 10*3/uL (130-400); RED BLOOD COUNT 3.85 10*6/uL (4.10-5.10); RED CELL DISTRI WIDTH 12.7 % (0-14.5); WHITE BLOOD COUNT 5.8 10*3/uL (4.8-10.8)
[2019-02-04 06:43] LABS: BUN 7 mg/dl (7-24); CHLORIDE 108 mmol/L (98-107); CHOLESTEROL 199 mg/dL (<200); CREATININE 0.79 mg/dL (0.55-1.02); HDL CHOLESTEROL 70 mg/dl (40-60); LDL CHOLESTEROL 112 mg/dL (9-159); PHOSPHOROUS 3.4 mg/dL (2.5-4.9); POTASSIUM 2.9 mmol/L (3.5-5.1); SODIUM 144 mmol/L (136-145); TRIGLYCERIDES 86 mg/dl (<150); VLDL CHOLESTEROL 17 mg/dL (6-40)
[2019-02-04 08:00] VITALS: BP 174/88
--- NOTE | 2019-02-04 09:00 | NUR ---
Teacher Instrumental in to talk to patient. Patient states lives at home alone with her family living all around her. Her granddaughter is at the bedside. There are 3 steps in the home. Physician: Dr. Luis Medrano [facility]: [facility] Home health services: none Patient's level of ADLs: INDEPENDENT Patient has working utilities: yes DME: none Follow-up physician's appointment after d/c: she prefers to make her own follow up appt after discharge Does patient want to access PORTAL?: no Discharge plan discussed with patient. She lives at home alone with her family checking in on her. She is independent in her ADLs and ambulation. Discussed home health care services and she denies any home needs. When medically stable she will be discharged to home. PEDRO PABLO FREEDMAN
[2019-02-04 12:00] VITALS: BP 137/87
[2019-02-04 16:00] VITALS: BP 121/77
[2019-02-04 20:00] VITALS: BP 135/65
[2019-02-05] VITALS: BP 131/95
[2019-02-05 06:52] LABS: BUN 12 mg/dl (7-24); CHLORIDE 104 mmol/L (98-107); CREATININE 0.98 mg/dL (0.55-1.02); POTASSIUM 3.4 mmol/L (3.5-5.1); SODIUM 141 mmol/L (136-145)
[2019-02-05 08:05] VITALS: BP 142/82
--- NOTE | 2019-02-05 08:05 | NUR ---
Shift chart check completed.
--- NOTE | 2019-02-05 08:30 | NUR ---
Radiator Core Tester in to see patient. No new needs or request at this time. She denies any home needs. When medically stable she will be discharged to home.
--- NOTE | 2019-02-05 11:58 | NUR ---
PT OFF UNIT AT THIS TIME FOR STRESS TEST.
[2019-02-05 12:00] VITALS: BP 146/72
--- NOTE | 2019-02-05 12:20 | NUR ---
INFORMED CONSENT OBTAINED FOR LEXISCAN NUCLEAR STRESS TEST WITH DR. ANGULO. RESTING EKG ATRIAL FIB WITH A RESTING HR OF 77 WITH BP OF 140/86. LUNGS CLEAR WITH SPO2 OF 99% ON ROOM AIR. PT COMPLETED A 1:00 LEXISCAN PROTOCOL RECEIVING LEXISCAN 0.4 MG IV OVER 10 SECONDS. HAD NO CHEST PAIN OR ANY EKG CHANGES. DID C/O ABDOMINAL CRAMPING AND HEADACHE THAT WAS RELIEVED IN RECOVERY. HAD A PEAK HR OF 131 WITH BP OF 140/74. LAST RECOVERY HR OF 104 WITH BP OF 134/74. AWAITING SCANNING IN STABLE CONDITION.
[2019-02-05] MEDS ORDERED: LIPITOR10 MG PO (12:23)
--- NOTE | 2019-02-05 13:04 | NUR ---
SPOKE WITH DR. ANGULO, STATED TO DISCHARGE PATIENT, REGARDLESS IF RESULTS OF STRESS TEST ARE RECEIVED. STATES SHE HAS A FOLLOW UP APPOINTMENT WITH HIM ON SATURDAY, AND THAT SHE NEEDS TO FOLLOW UP WITH DR. OLSON WELL.
--- NOTE | 2019-02-05 13:48 | NUR ---
pt return from stress test. okay to discharge home today. tele removed, iv removed and dressing applied. pt given all am ordered medications.
--- NOTE | 2019-02-05 14:03 | NUR ---
Discharge instructions reviewed with patient/family. Patient receptive and verbalizes understanding. Follow-up care understood. Written instructions given to patient/family. pt declines wheelchair for discharge, understands new rx sent to pharmacy to be picked up. LEIDY CINTRON
[2019-05-24] MEDS ORDERED: DOXYCYCLINE HY100 M3 PO (18:04)
[2019-05-26] MEDS ORDERED: PACERONE200 MG PO (11:32)
== END 2019-02-05 14:03 | disposition home or self-care (01) | DRG 556 ==
LOC: ED 18:36 → 5E 22:05 → EDHOLD 22:05 → 5E 22:28
PROVIDERS: Emergency Medicine; Internal Medicine; ADMIT Internal Medicine
PROC: 4A02XM4 Measurement of Cardiac Total Activity, External Approach (ICD-10-PCS; principal; 2019-02-05)
PROC: 3E073KZ Introduction of Other Diagnostic Substance into Coronary Artery, Percutaneous Approach (ICD-10-PCS; 2019-02-05)
DX: M25.512 Pain in left shoulder (principal); M19.012 Primary osteoarthritis, left shoulder; I48.91 Unspecified atrial fibrillation; E87.6 Hypokalemia; M54.9 Dorsalgia, unspecified; I10 Essential (primary) hypertension; E78.5 Hyperlipidemia, unspecified; G40.909 Epilepsy, unspecified, not intractable, without status epilepticus; K21.9 Gastro-esophageal reflux disease without esophagitis; W10.9XXA Fall (on) (from) unspecified stairs and steps, initial encounter; Y92.098 Other place in other non-institutional residence as the place of occurrence of the external cause; Y93.89 Activity, other specified; Y99.8 Other external cause status; Z79.01 Long term (current) use of anticoagulants; Z90.710 Acquired absence of both cervix and uterus; Z90.49 Acquired absence of other specified parts of digestive tract; Z82.0 Family history of epilepsy and other diseases of the nervous system; Z80.0 Family history of malignant neoplasm of digestive organs; Z83.3 Family history of diabetes mellitus; Z82.49 Family history of ischemic heart disease and other diseases of the circulatory system; Z79.899 Other long term (current) drug therapy; R07.89 Other chest pain

== ENCOUNTER 2019-08-02 01:17 | Inpatient (IN) | payer OTHER ==
[~2019-08-02] VITALS: Ht 154.9 cm; Wt 69.5 kg
[2019-08-02] VITALS (8 sets, daily range): BP systolic 93–166; BP diastolic 44–76
[~2019-08-02 01:17] MED LIST changes: +ALEVE220 M1 PO; +ARICEPT5 M1 PO; +DOXYCYCLINE HY100 M3 PO; +KEPPRA500 MG PO; +KLOR-CON 1010 ME1 PO; +LASIX40 MG PO; +LIPITOR10 MG PO; +MOBIC7.5 MG PO; +SINEMET 10-1001 EACH PO; +VITAMIN D-32000 UNI1 PO
[2019-08-02 01:38] LABS: BASO # 0.1 10*3/uL (0.0-0.1); BASO % 0.6 % (0.0-1.0); EOS % 0.3 % (1.0-4.0); HEMATOCRIT 35.6 % (37.0-47.0); HEMOGLOBIN 11.5 g/dl (12.0-16.0); LYMPH # 2.8 10*3/uL (1.3-4.4); LYMPH % 26.9 % (27.0-41.0); MEAN CELL VOLUME 96.2 fl (81.0-99.0); MEAN CORPUSCULAR HGB 31.1 pg (27.0-31.0); MEAN CORPUSCULAR HGB CONC 32.3 g/dl (33.0-37.0); MEAN PLATELET VOLUME 11.2 fl (9.6-12.3); MONO # 1.2 10*3/uL (0.1-1.0); MONO % 11.3 % (3.0-9.0); NEUT # 6.2 10*3/uL (2.3-7.9); NEUT % 60.4 % (47.0-73.0); PLATELET COUNT AUTOMATED 229 10*3/uL (130-400); RED CELL DISTRI WIDTH 12.6 % (0-14.5); WHITE BLOOD COUNT 10.3 10*3/uL (4.8-10.8)
--- NOTE | 2019-08-02 01:44 | NUR ---
REPORT TO JUDY GONZALEZ [facility]. DISCUSSED LABS, TREATMENTS, AND IV FLUIDS WHILE IN ED. ADVISED NO RETURN OF EPISTAXIS IN ED.
--- NOTE | 2019-08-02 01:50 | NUR ---
NSS ORDER NOT CROSSING OVER TO EMAR. 500 ML OF NSS INITIATED AT THIS TIME. DR BUSBY AWARE OF ISSUES WITH EMAR.
--- NOTE | 2019-08-02 01:54 | NUR ---
FAMILY NOW PRESENT AND ADVISE OF SYNCOPAL EPISODE AT ONSET OF CP. FELL AND HIT HEAD. HAD TWO MORE EPISODES OF SYNCOPE AFTERWARDS. DR WAGNER MADE AWARE.
[2019-08-02 01:56] LABS: ALBUMIN 3.4 gm/dl (3.1-4.5); CREATININE 1.14 mg/dL (0.55-1.02); POTASSIUM 2.6 mmol/L (3.5-5.1); TOTAL PROTEIN 6.9 gm/dL (6.4-8.2)
[2019-08-02 01:59] LABS: ACETAMINOPHEN (TYLENOL) < 5.0 ug/ml (10-30); ACT PARTIAL THROMBO TIME 24.5 SECONDS (20.0-32.1)
[2019-08-02 02:01] LABS: TROPONIN I 0.247 ng/ml (<0.045)
--- NOTE | 2019-08-02 02:04 | NUR ---
OFF THE FLOOR FOR IMAGING.
--- NOTE | 2019-08-02 02:23 | NUR ---
CHILLED AND SHAKING. ADDITIONAL WARM BLANKETS PROVIDED. IS ALERT, COMPLAINING OF GAS AND WANTS TO KNOW IF WE CAN GIVE HER SOMETHING TO MAKE THE GAS STOP. FAMILY HAS RETURNED TO WAITING ROOM.
--- NOTE | 2019-08-02 02:50 | NUR ---
UNABLE TO PROVIDE URINE SPECIMEN AT THIS TIME AND IS REFUSING STRAIGHT CATH.
--- NOTE | 2019-08-02 03:00 | NUR ---
DR BUSBY IS AT THE BEDSIDE.
--- NOTE | 2019-08-02 03:15 | NUR ---
INITIAL 500 ML OF NSS COMPLETED AT 0300. SECOND DOSE OF 500 ML OF NSS INITIATED AT THIS TIME ORDERED.
--- NOTE | 2019-08-02 03:16 | NUR ---
UPDATED ON PLAN FOR ADMISSION AND IS FEELING MUCH BETTER. FAMILY IS BAGGING BELONGIGS AND WILL TAKE HOME SHOES AND CLOTHES AND ID CARDS.
--- NOTE | 2019-08-02 03:46 | NUR ---
NOTIFIED CHARLEEN HORNE OF ETA.
--- NOTE | 2019-08-02 03:55 | NUR ---
A 74, admitted to 5E, under the services of DHIRAJ Vides MD with a diagnosis of CHEST PAIN. Chief complaint is CHEST PAIN. Patient arrived via ambulance from ER. Monitor applied. Initial assessment completed. Vital signs taken and recorded. DHIRAJ VIDES MD notified of admission to the unit. Orders received. See assessment for past medical history, medications and allergies. Patient and/or family oriented to unit. [address] visitation policy reviewed. Clothing/patient valuable form completed. OZZIE NICHOLS
--- NOTE | 2019-08-02 06:41 | NUR ---
CALL PLACED TO DR. ANGULO FOR TROPONIN RESULT, ORDER RECEIVED FOR WESLEY CONSULT, CALL PLACED TO DR. OLSON. HE VERSED HE WILL BE IN LATER TODAY.
--- NOTE | 2019-08-02 07:52 | NUR ---
CALLED DR. ANGULO IN REGARDS TO CRITICAL REPORT OF TROP: [phone].
[2019-08-02 08:38] LABS: URINE AMPHETAMINES < 1000 (1000ng/ml); URINE BARBITURATES < 200 (200ng/ml); URINE BENZODIAZEPINES < 200 (200ng/ml); URINE CANNABINOIDS (THC) < 50 (50ng/ml); URINE COCAINE < 300 (300ng/ml); URINE METHADONE < 300 (300ng/ml); URINE OPIATES < 300 (300ng/ml)
[2019-08-02 08:52] LABS: URINE PHENCYCLIDINE < 25 (25ng/ml)
[2019-08-02 14:09] LABS: BUN 11 mg/dl (7-24); CHLORIDE 107 mmol/L (98-107); CREATININE 0.88 mg/dL (0.55-1.02); POTASSIUM 4.1 mmol/L (3.5-5.1); SODIUM 140 mmol/L (136-145)
[2019-08-03] VITALS: BP 151/59
--- NOTE | 2019-08-03 03:00 | NUR ---
PATIENT RESTING WITH EYSE CLOSED. RESPIRATIONS EASY AND UNLABORED. CALL LIGHT WITHIN REACH. WILL MONITOR.
--- NOTE | 2019-08-03 04:49 | NUR ---
24 HR chart check completed.
--- NOTE | 2019-08-03 06:00 | NUR ---
PATIENT FOUND TO HAVE SKIN TEAR ON LEFT ARM AFTER PATIENT PULLED TAPE OFF ARM. WOUND CARE REASSESSMENT COMPLETE.
[2019-08-03 06:55] LABS: BASO % 0.4 % (0.0-1.0); EOS # 0.1 10*3/uL (0.0-0.4); EOS % 0.9 % (1.0-4.0); HEMATOCRIT 36.7 % (37.0-47.0); HEMOGLOBIN 11.7 g/dl (12.0-16.0); LYMPH # 1.6 10*3/uL (1.3-4.4); LYMPH % 22.3 % (27.0-41.0); MEAN CELL VOLUME 96.6 fl (81.0-99.0); MEAN CORPUSCULAR HGB 30.8 pg (27.0-31.0); MEAN CORPUSCULAR HGB CONC 31.9 g/dl (33.0-37.0); MEAN PLATELET VOLUME 11.4 fl (9.6-12.3); MONO # 0.6 10*3/uL (0.1-1.0); MONO % 8.6 % (3.0-9.0); NEUT # 4.7 10*3/uL (2.3-7.9); NEUT % 67.4 % (47.0-73.0); PLATELET COUNT AUTOMATED 198 10*3/uL (130-400); RED CELL DISTRI WIDTH 12.9 % (0-14.5)
[2019-08-03 07:21] LABS: BUN 14 mg/dl (7-24); CHLORIDE 109 mmol/L (98-107); CREATININE 0.89 mg/dL (0.55-1.02); PHOSPHOROUS 2.9 mg/dL (2.5-4.9); POTASSIUM 3.8 mmol/L (3.5-5.1); SODIUM 142 mmol/L (136-145)
--- NOTE | 2019-08-03 08:31 | NUR ---
TO [facility] REPORT GIVEN BY 11 SHIFT
== END 2019-08-03 08:31 | disposition other institution (70) | DRG 190 ==
LOC: ED 01:17 → EDHOLD 03:34 → 5E 03:58
PROVIDERS: Emergency Medicine Emergency Medical Services; Student in an Organized Health Care Education/Training Program; ADMIT Internal Medicine
DX: I21.4 Non-ST elevation (NSTEMI) myocardial infarction (principal); K21.9 Gastro-esophageal reflux disease without esophagitis; E78.5 Hyperlipidemia, unspecified; I10 Essential (primary) hypertension; F10.129 Alcohol abuse with intoxication, unspecified; E87.6 Hypokalemia; R55 Syncope and collapse; M19.90 Unspecified osteoarthritis, unspecified site; G40.909 Epilepsy, unspecified, not intractable, without status epilepticus; Z90.49 Acquired absence of other specified parts of digestive tract; Z90.710 Acquired absence of both cervix and uterus; Z83.3 Family history of diabetes mellitus; Z82.49 Family history of ischemic heart disease and other diseases of the circulatory system; Z80.0 Family history of malignant neoplasm of digestive organs; I95.9 Hypotension, unspecified; R73.9 Hyperglycemia, unspecified; D64.9 Anemia, unspecified

== ENCOUNTER 2019-08-26 15:34 | Inpatient (IN) | payer OTHER ==
[~2019-08-26] VITALS: Ht 152.4 cm; Wt 67.7 kg
--- NOTE | ~2019-08-26 | EKG ---
[place], [place] ELECTROCARDIOGRAM REPORT NAME: ANGEL RODRIGEZ UNIT #: [id number] ROOM: 507 DOCTOR: SHEA DRAFT REPORT BIRTHDATE: [birth year] [facility] Test Date: 2019-08-26 Test Time: 21:36:53 Pat Name: ANGEL RODRIGEZ Department: Room: 507 Gender: F Supervisor Screen Making: : 1945 Requested By: AUDRA NELSON Order Number: [id number] Reading MD: Gissel Muir MD Measurements Intervals [place] Rate: 46 P: -21 [place]: 207 QRS: 4 QRSD: 85 T: -65 QT: 496 QTc: 434 Interpretive Statements Sinus bradycardia Nonspecific T abnormalities, diffuse leads Compared to ECG 08/02/2019 07:45:43 T-wave abnormality now present Sinus rhythm no longer present Electronically Signed On 08-27-2019 14:43:05 PST by Gissel Muir MD CM:EKGRPT:ELECTROCARDIOGRAM REPORT [id number] AUDRA VALDIVIA DRAFT REPORT AUDRA NELSON M.D.
--- NOTE | ~2019-08-26 | EKG ---
[place], [place] ELECTROCARDIOGRAM REPORT NAME: ANGEL RODRIGEZ UNIT #: [id number] ROOM: 507 DOCTOR: SHEA DRAFT REPORT BIRTHDATE: [birth year] [facility] Test Date: 2019-08-26 Test Time: 15:35:34 Pat Name: ANGEL RODRIGEZ Department: Room: 507 Gender: F Family Law Paralegal: : 1945 Requested By: AUDRA NELSON Order Number: [id number] Reading MD: Gissel Muir MD Measurements Intervals [place] Rate: 52 P: -15 [place]: 202 QRS: 8 QRSD: 89 T: -30 QT: 449 QTc: 418 Interpretive Statements Sinus rhythm Borderline T abnormalities, inferior leads Compared to ECG 08/02/2019 07:45:43 T-wave abnormality now present Electronically Signed On 08-27-2019 14:41:33 PST by Gissel Muir MD CM:EKGRPT:ELECTROCARDIOGRAM REPORT [id number] AUDRA VALDIVIA DRAFT REPORT AUDRA NELSON M.D.
--- NOTE | ~2019-08-26 | EKG ---
[place], [place] ELECTROCARDIOGRAM REPORT NAME: ANGEL RODRIGEZ UNIT #: [id number] ROOM: 507 DOCTOR: SHEA DRAFT REPORT BIRTHDATE: [birth year] [facility] Test Date: 2019-08-26 Test Time: 18:43:58 Pat Name: ANGEL RODRIGEZ Department: Room: 507 Gender: F Employment Program Representative: : 1945 Requested By: AUDRA NELSON Order Number: [id number] Reading MD: Gissel Muir MD Measurements Intervals [place] Rate: 50 P: -9 [place]: 198 QRS: -2 QRSD: 84 T: -27 QT: 471 QTc: 430 Interpretive Statements Sinus bradycardia Nonspecific T abnormalities, diffuse leads Compared to ECG 08/02/2019 07:45:43 T-wave abnormality now present Electronically Signed On 08-27-2019 14:42:45 PST by Gissel Muir MD CM:EKGRPT:ELECTROCARDIOGRAM REPORT [id number] AUDRA VALDIVIA DRAFT REPORT AUDRA NELSON M.D.
[2019-08-26 15:40] VITALS: BP 177/62
[2019-08-26 15:52] LABS: BASO % 0.5 % (0.0-1.0); EOS # 0.1 10*3/uL (0.0-0.4); EOS % 0.7 % (1.0-4.0); HEMATOCRIT 38.6 % (37.0-47.0); HEMOGLOBIN 12.5 g/dl (12.0-16.0); LYMPH # 1.6 10*3/uL (1.3-4.4); LYMPH % 22.4 % (27.0-41.0); MEAN CORPUSCULAR HGB 31.4 pg (27.0-31.0); MEAN CORPUSCULAR HGB CONC 32.4 g/dl (33.0-37.0); MEAN PLATELET VOLUME 10.9 fl (9.6-12.3); MONO # 0.7 10*3/uL (0.1-1.0); MONO % 9.2 % (3.0-9.0); NEUT # 4.9 10*3/uL (2.3-7.9); NEUT % 66.8 % (47.0-73.0); PLATELET COUNT AUTOMATED 218 10*3/uL (130-400); RED BLOOD COUNT 3.98 10*6/uL (4.10-5.10); RED CELL DISTRI WIDTH 12.3 % (0-14.5); WHITE BLOOD COUNT 7.3 10*3/uL (4.8-10.8)
[2019-08-26 16:05] LABS: ACT PARTIAL THROMBO TIME 36.5 SECONDS (20.0-32.1); INTERNATIONAL NORM RATIO 1.3 (2.0-3.5)
[2019-08-26 16:09] LABS: ALBUMIN 3.8 gm/dl (3.1-4.5); ALKALINE PHOSPHATASE 159 U/L (45-117); BUN 16 mg/dl (7-24); CHLORIDE 103 mmol/L (98-107); CREATININE 1.38 mg/dL (0.55-1.02); SGOT/AST 17 IU/L (3-35); SGPT/ALT 13 U/L (12-78); SODIUM 138 mmol/L (136-145); TOTAL PROTEIN 7.4 gm/dL (6.4-8.2); TROPONIN I < 0.015 ng/ml (<0.045)
[2019-08-26 17:10] VITALS: BP 176/56
--- NOTE | 2019-08-26 17:10 | NUR ---
A 74, admitted to 5E, under the services of DHIRAJ Vides MD with a diagnosis of DIZZINESS, BRADYCARDIA. Chief complaint is CHEST PAIN. Patient arrived via wheel chair from ER. Monitor applied. Initial assessment completed. Vital signs taken and recorded. DHIRAJ VIDES MD notified of admission to the unit. Orders received. See assessment for past medical history, medications and allergies. Patient and/or family oriented to unit. [address] visitation policy reviewed. Clothing/patient valuable form completed. ALYSSIA WILLARD
--- NOTE | 2019-08-26 18:13 | NUR ---
DR. RUIZ NOTIFIED CONSULT, IN TO SEE PT. ORDERS RECEIVED.
--- NOTE | 2019-08-26 18:13 | NUR ---
DR. CARTAGENA NOTIFIED OF CONSULT.
[2019-08-26 20:00] VITALS: BP 172/58
--- NOTE | 2019-08-26 20:00 | NUR ---
PATIENT ASSESSMENT COMPLETED WITHOUT INCIDENT AT THIS TIME. PATIENT DENIES ANY NEEDS OR PAIN AT THIS TIME. PATIENT DOES COMPLAIN OF DIFFICULTY WHEN SWALLOWING WITH A FEELING OF THE FOOD GETTING STUCK IN THE UPPER EPIGASTRIC AREA CAUSING HER TO FEEL LIKE SHE IS HAVING CHEST PAIN. IV FLUIDS INFUSING WITHOUT INCIDENT. TREAD BOOKER SHOWING HEART RATE 45-57. CALL LIGHT WITHIN REACH WILL CONTINUE TO MONITOR.
--- NOTE | 2019-08-26 20:00 | NUR ---
ORDERED URINE SPECIMEN COLLECTED AND SENT TO LAB.
[2019-08-26 20:46] LABS: BILIRUBIN NEGATIVE (NEGATIVE); BLOOD TRACE-INTACT (NEGATIVE); CLARITY CLEAR (CLEAR); COLOR YELLOW (YELLOW); GLUCOSE NEGATIVE (NEGATIVE); KETONE NEGATIVE (NEGATIVE); LEUKO ESTERASE 1+ (NEGATIVE); NITRITE NEGATIVE (NEGATIVE); SPECIFIC GRAVITY <= 1.005 (1.005-1.030); UROBILINOGEN 0.2 E.U./dl (0.2-1.0)
[2019-08-26 20:55] LABS: URINE CREATININE RANDOM 33.6 mg/dL
[2019-08-26 20:59] LABS: BACTERIA TRACE; EPITHELIAL CELLS 0-2; RBC 0-2 rbc/hpf (0-2); WBC 21-30 wbc/hpf (0-5)
--- NOTE | 2019-08-26 23:00 | NUR ---
24 HOUR CHART CHECK COMPLETE
[2019-08-27] VITALS: BP 145/57
--- NOTE | 2019-08-27 00:20 | NUR ---
PATIENT RESTING IN BED IN A POSITION OF COMFORT AT THIS TIME, NO SIGNS OR SYMPTOMS OF DISTRESS NOTED AT THIS TIME.CALL LIGHT WITHIN REACH WILL CONTINUE TO MONITOR.
--- NOTE | 2019-08-27 02:35 | NUR ---
IV FLUIDS ORDERED BY COMPLETED AT THIS TIME.
[2019-08-27 06:46] LABS: BASO % 0.4 % (0.0-1.0); EOS # 0.1 10*3/uL (0.0-0.4); EOS % 1.1 % (1.0-4.0); HEMATOCRIT 36.2 % (37.0-47.0); HEMOGLOBIN 11.5 g/dl (12.0-16.0); LYMPH # 1.6 10*3/uL (1.3-4.4); LYMPH % 29.5 % (27.0-41.0); MEAN CELL VOLUME 95.3 fl (81.0-99.0); MEAN CORPUSCULAR HGB 30.3 pg (27.0-31.0); MEAN CORPUSCULAR HGB CONC 31.8 g/dl (33.0-37.0); MEAN PLATELET VOLUME 10.7 fl (9.6-12.3); MONO # 0.5 10*3/uL (0.1-1.0); MONO % 8.8 % (3.0-9.0); NEUT # 3.2 10*3/uL (2.3-7.9); NEUT % 59.8 % (47.0-73.0); PLATELET COUNT AUTOMATED 213 10*3/uL (130-400); RED CELL DISTRI WIDTH 12.3 % (0-14.5); WHITE BLOOD COUNT 5.4 10*3/uL (4.8-10.8)
[2019-08-27 07:12] LABS: ALBUMIN 3.1 gm/dl (3.1-4.5); ALKALINE PHOSPHATASE 132 U/L (45-117); BUN 14 mg/dl (7-24); CHLORIDE 108 mmol/L (98-107); CHOLESTEROL 156 mg/dL (<200); CREATININE 1.05 mg/dL (0.55-1.02); HDL CHOLESTEROL 72 mg/dl (40-60); LDL CHOLESTEROL 70 mg/dL (9-159); SGOT/AST 13 IU/L (3-35); SGPT/ALT 12 U/L (12-78); SODIUM 141 mmol/L (136-145); TOTAL PROTEIN 6.2 gm/dL (6.4-8.2); TRIGLYCERIDES 69 mg/dl (<150); VLDL CHOLESTEROL 14 mg/dL (6-40)
[2019-08-27 07:26] LABS: PHENYTOIN (DILANTIN) 8.3 ug/ml (10-20)
[2019-08-27 08:00] VITALS: BP 145/54; BP 170/70
[2019-08-27 08:39] LABS: VITAMIN D, 25-HYDROXY 29.3 ng/mL (30-100)
--- NOTE | 2019-08-27 09:00 | NUR ---
Inspector And Clipper in to talk to patient. Patient states lives at home alone with family checking in on her. There are 3 steps in the home. Physician: Dr. Luis Medrano [facility]acy: [facility] Home health services: would like [facility] on discharge Patient's level of ADLs: INDEPENDENT Patient has working utilities: yes DME: none Follow-up physician's appointment after d/c: she prefers to make her own follow up appt after discharge Does patient want to access PORTAL?: no Discharge plan discussed with patient. She lives at home alone with her family checking in on her. She is independent in her ADLs and ambulation. Discussed home health care services and she is agreeable and would like to have a nurse come out and check her blood pressure weekly. When provided with a list of agencies she chose [facility]. When medically stable she will be discharged to home with [facility] services. Her granddaughter will provide transportation on discharge. PEDRO PABLO FREEDMAN
[2019-08-27 10:29] LABS: BILIRUBIN NEGATIVE (NEGATIVE); BLOOD TRACE-INTACT (NEGATIVE); CLARITY SL CLOUDY (CLEAR); COLOR YELLOW (YELLOW); GLUCOSE NEGATIVE (NEGATIVE); KETONE NEGATIVE (NEGATIVE); LEUKO ESTERASE 2+ (NEGATIVE); NITRITE NEGATIVE (NEGATIVE); UROBILINOGEN 0.2 E.U./dl (0.2-1.0)
[2019-08-27 10:43] LABS: WBC 41-50 wbc/hpf (0-5)
[2019-08-27 10:46] LABS: BACTERIA 1+; EPITHELIAL CELLS 20-30
[2019-08-27 12:00] VITALS: BP 168/57
[2019-08-27] MEDS ORDERED: CIPROFLOXACIN500 M4 PO (15:14)
--- NOTE | 2019-08-27 15:58 | NUR ---
[facility] Discharge instructions reviewed with patient/family. Patient receptive and verbalizes understanding. Follow-up care arranged. Written instructions given to patient/family. YOUNG FRANCO
--- NOTE | 2019-08-27 16:05 | NUR ---
Faxed new home health order to [facility]
== END 2019-08-27 16:02 | disposition home or self-care (01) | DRG 201 ==
LOC: ED 15:34 → EDHOLD 16:25 → 5E 16:25
PROVIDERS: Emergency Medicine; Internal Medicine Nephrology; Student in an Organized Health Care Education/Training Program; ADMIT Internal Medicine
DX: I44.0 Atrioventricular block, first degree (principal); R94.31 Abnormal electrocardiogram [ECG] [EKG]; K21.9 Gastro-esophageal reflux disease without esophagitis; E78.5 Hyperlipidemia, unspecified; I10 Essential (primary) hypertension; M19.90 Unspecified osteoarthritis, unspecified site; I48.20 Chronic atrial fibrillation, unspecified; G40.909 Epilepsy, unspecified, not intractable, without status epilepticus; N39.0 Urinary tract infection, site not specified; R73.9 Hyperglycemia, unspecified; N17.9 Acute kidney failure, unspecified; G89.29 Other chronic pain; E55.9 Vitamin D deficiency, unspecified; G20 Parkinson's disease; G30.9 Alzheimer's disease, unspecified; F02.80 Dementia in other diseases classified elsewhere, unspecified severity, without behavioral disturbance, psychotic disturbance, mood disturbance, and anxiety; Z79.899 Other long term (current) drug therapy; Z90.710 Acquired absence of both cervix and uterus; Z90.49 Acquired absence of other specified parts of digestive tract; Z98.49 Cataract extraction status, unspecified eye; Z82.0 Family history of epilepsy and other diseases of the nervous system; Z80.1 Family history of malignant neoplasm of trachea, bronchus and lung; Z80.0 Family history of malignant neoplasm of digestive organs; Z83.3 Family history of diabetes mellitus; Z82.49 Family history of ischemic heart disease and other diseases of the circulatory system; I25.2 Old myocardial infarction; Z79.01 Long term (current) use of anticoagulants

== ENCOUNTER 2020-08-23 21:39 | Observation (INO) | payer OTHER ==
[~2020-08-23] VITALS: Ht 157.4 cm; Wt 68.5 kg
[~2020-08-23 21:39] MED LIST changes: +CIPROFLOXACIN500 M4 PO; +LISINOPRIL10 M1 PO; +MELOXICAM7.5 MG PO
[2020-08-23 21:54] VITALS: BP 137/59
[2020-08-23 21:57] LABS: BASO % 0.5 % (0.0-1.0); EOS # 0.2 10*3/uL (0.0-0.4); EOS % 2.1 % (1.0-4.0); HEMATOCRIT 36.4 % (37.0-47.0); LYMPH # 2.4 10*3/uL (1.3-4.4); MEAN CORPUSCULAR HGB 28.5 pg (27.0-31.0); MEAN CORPUSCULAR HGB CONC 31.3 g/dl (33.0-37.0); MEAN PLATELET VOLUME 10.2 fl (9.6-12.3); MONO # 0.8 10*3/uL (0.1-1.0); MONO % 10.3 % (3.0-9.0); NEUT # 4.6 10*3/uL (2.3-7.9); NEUT % 56.9 % (47.0-73.0); PLATELET COUNT AUTOMATED 270 10*3/uL (130-400); RED CELL DISTRI WIDTH 12.1 % (0-14.5); WHITE BLOOD COUNT 8.1 10*3/uL (4.8-10.8)
[2020-08-23 22:12] LABS: INTERNATIONAL NORM RATIO 1.2 (2.0-3.5)
[2020-08-23 22:13] LABS: ALBUMIN 3.6 gm/dl (3.1-4.5); ALKALINE PHOSPHATASE 178 U/L (45-117); BUN 14 mg/dl (7-24); CHLORIDE 108 mmol/L (98-107); CREATININE 1.39 mg/dL (0.55-1.02); POTASSIUM 3.8 mmol/L (3.5-5.1); SGOT/AST 17 IU/L (3-35); SGPT/ALT 12 U/L (12-78); SODIUM 141 mmol/L (136-145); TOTAL PROTEIN 7.9 gm/dL (6.4-8.2)
[2020-08-23 22:28] LABS: TROPONIN I < 0.015 ng/ml (<0.045)
[2020-08-23 22:34] VITALS: BP 141/63
[2020-08-23] MEDS ORDERED: CITALOPRAM HYDR10 MG PO (22:48)
[2020-08-23] MEDS ORDERED: MECLIZINE HCL25 M2 PO (22:49)
[2020-08-23] MEDS ORDERED: LISINOPRIL5 MG PO (22:51)
[2020-08-23 23:00] VITALS: BP 179/58
[2020-08-23 23:30] VITALS: BP 178/66
[2020-08-24] VITALS (7 sets, daily range): BP systolic 148–185; BP diastolic 48–80
[2020-08-24 01:48] LABS: THYROID STIM HORMONE (HS) 1.65 uIU/ml (0.358-4.75)
[2020-08-24 06:32] LABS: BASO % 0.5 % (0.0-1.0); EOS # 0.1 10*3/uL (0.0-0.4); EOS % 1.6 % (1.0-4.0); HEMATOCRIT 33.9 % (37.0-47.0); LYMPH # 1.7 10*3/uL (1.3-4.4); LYMPH % 26.5 % (27.0-41.0); MEAN CELL VOLUME 91.1 fl (81.0-99.0); MEAN CORPUSCULAR HGB 28.2 pg (27.0-31.0); MEAN PLATELET VOLUME 10.1 fl (9.6-12.3); MONO # 0.7 10*3/uL (0.1-1.0); MONO % 10.3 % (3.0-9.0); NEUT # 3.8 10*3/uL (2.3-7.9); NEUT % 60.8 % (47.0-73.0); PLATELET COUNT AUTOMATED 225 10*3/uL (130-400); RED BLOOD COUNT 3.72 10*6/uL (4.10-5.10); RED CELL DISTRI WIDTH 12.2 % (0-14.5); WHITE BLOOD COUNT 6.3 10*3/uL (4.8-10.8)
[2020-08-24 06:52] LABS: CKMB < 1.0 ng/ml (0.5-3.6)
[2020-08-24 06:55] LABS: BUN 15 mg/dl (7-24); CHLORIDE 109 mmol/L (98-107); CHOLESTEROL 171 mg/dL (<200); CREATININE 1.01 mg/dL (0.55-1.02); HDL CHOLESTEROL 86 mg/dl (40-60); LDL CHOLESTEROL 74 mg/dL (9-159); SODIUM 142 mmol/L (136-145); TRIGLYCERIDES 55 mg/dl (<150); VLDL CHOLESTEROL 11 mg/dL (6-40)
[2020-08-24 07:03] LABS: TROPONIN I < 0.015 ng/ml (<0.045)
[2020-08-24 08:40] LABS: VITAMIN D, 25-HYDROXY 21.1 ng/mL (30-100)
[2020-08-24 12:15] LABS: CKMB < 1.0 ng/ml (0.5-3.6)
[2020-08-24 12:17] LABS: TROPONIN I < 0.015 ng/ml (<0.045)
[2020-08-24 18:16] LABS: CKMB < 1.0 ng/ml (0.5-3.6)
[2020-08-24 18:19] LABS: TROPONIN I < 0.015 ng/ml (<0.045)
[2020-08-25 00:42] LABS: CKMB < 1.0 ng/ml (0.5-3.6)
[2020-08-25 00:43] LABS: TROPONIN I < 0.015 ng/ml (<0.045)
[2020-08-25 07:18] LABS: CKMB < 1.0 ng/ml (0.5-3.6)
[2020-08-25 07:19] LABS: TROPONIN I < 0.015 ng/ml (<0.045)
[2020-08-25 08:19] VITALS: BP 165/50
== END 2020-08-25 08:45 | disposition short-term general hospital (02) ==
LOC: ED 21:39 → EDHOLD 23:21
PROVIDERS: Emergency Medicine; Internal Medicine; ADMIT Internal Medicine; ATTEND Internal Medicine
DX: R00.0 Tachycardia, unspecified (principal); I44.0 Atrioventricular block, first degree; R07.89 Other chest pain; R94.39 Abnormal result of other cardiovascular function study; I21.4 Non-ST elevation (NSTEMI) myocardial infarction; N17.0 Acute kidney failure with tubular necrosis; I48.91 Unspecified atrial fibrillation

== ENCOUNTER 2020-11-06 14:42 | Observation (INO) | payer OTHER ==
[~2020-11-06] VITALS: Ht 154.9 cm; Wt 78.5 kg
[~2020-11-06 14:42] MED LIST changes: +CITALOPRAM HYDR10 MG PO; +LISINOPRIL5 MG PO; +MECLIZINE HCL25 M2 PO
[2020-11-06 14:51] VITALS: BP 144/51
[2020-11-06] MEDS ORDERED: PACERONE200 MG PO (15:05)
[2020-11-06 15:08] LABS: BASO % 0.2 % (0.0-1.0); EOS % 0.4 % (1.0-4.0); HEMATOCRIT 34.8 % (37.0-47.0); LYMPH # 0.6 10*3/uL (1.3-4.4); LYMPH % 12.2 % (27.0-41.0); MEAN CELL VOLUME 84.7 fl (81.0-99.0); MEAN CORPUSCULAR HGB 25.8 pg (27.0-31.0); MEAN CORPUSCULAR HGB CONC 30.5 g/dl (33.0-37.0); MEAN PLATELET VOLUME 11.2 fl (9.6-12.3); MONO # 0.5 10*3/uL (0.1-1.0); MONO % 10.7 % (3.0-9.0); NEUT # 3.6 10*3/uL (2.3-7.9); NEUT % 76.1 % (47.0-73.0); PLATELET COUNT AUTOMATED 171 10*3/uL (130-400); RED BLOOD COUNT 4.11 10*6/uL (4.10-5.10); RED CELL DISTRI WIDTH 13.7 % (0-14.5); WHITE BLOOD COUNT 4.7 10*3/uL (4.8-10.8)
[2020-11-06 15:20] LABS: ACT PARTIAL THROMBO TIME 36.1 SECONDS (20.0-32.1); INTERNATIONAL NORM RATIO 1.2 (2.0-3.5)
[2020-11-06 15:24] LABS: ALBUMIN 3.2 gm/dl (3.1-4.5); ALKALINE PHOSPHATASE 184 U/L (45-117); BUN 10 mg/dl (7-24); CHLORIDE 105 mmol/L (98-107); CREATININE 1.02 mg/dL (0.55-1.02); LIPASE 239 U/L (73-393); POTASSIUM 2.7 mmol/L (3.5-5.1); SGOT/AST 14 IU/L (3-35); SGPT/ALT 12 U/L (12-78); SODIUM 138 mmol/L (136-145); TOTAL PROTEIN 7.3 gm/dL (6.4-8.2)
[2020-11-06 15:33] LABS: TROPONIN I < 0.015 ng/ml (<0.045)
[2020-11-06 17:04] LABS: BILIRUBIN Negative (Negative); BLOOD 2+ (Negative); CLARITY Clear (Clear); COLOR Yellow (Yellow); GLUCOSE Negative (Negative); KETONE Negative (Negative); LEUKO ESTERASE 1+ (Negative); NITRITE Negative (Negative); UROBILINOGEN 0.2 E.U./dl (0.0-1.0)
[2020-11-06 17:10] LABS: BACTERIA 2+; RBC 0-2 rbc/hpf (0-2)
[2020-11-06 19:47] VITALS: BP 142/49
[2020-11-06 21:28] VITALS: BP 151/51
[2020-11-06 23:25] VITALS: BP 160/55
[2020-11-07] VITALS (8 sets, daily range): BP systolic 145–172; BP diastolic 54–64
[2020-11-07 05:46] LABS: ALBUMIN 2.8 gm/dl (3.1-4.5); ALKALINE PHOSPHATASE 157 U/L (45-117); BUN 10 mg/dl (7-24); CHLORIDE 109 mmol/L (98-107); CPK 29 U/L (26-192); CREATININE 0.96 mg/dL (0.55-1.02); POTASSIUM 3.1 mmol/L (3.5-5.1); SGOT/AST 12 IU/L (3-35); SGPT/ALT 11 U/L (12-78); SODIUM 140 mmol/L (136-145); TOTAL PROTEIN 6.6 gm/dL (6.4-8.2)
[2020-11-07 05:47] LABS: CKMB < 1.0 ng/ml (0.5-3.6)
[2020-11-07 05:52] LABS: THYROID STIM HORMONE (HS) 0.715 uIU/ml (0.358-4.75)
[2020-11-07 06:01] LABS: TROPONIN I < 0.015 ng/ml (<0.045)
[2020-11-07 06:38] LABS: BILIRUBIN Negative (Negative); BLOOD 2+ (Negative); CLARITY Clear (Clear); COLOR Yellow (Yellow); GLUCOSE Negative (Negative); KETONE Trace (Negative); LEUKO ESTERASE 1+ (Negative); NITRITE Negative (Negative); PH 5.5 (4.5-8.0)
[2020-11-07 06:41] LABS: HEMATOCRIT 30.8 % (37.0-47.0); MEAN CELL VOLUME 83.7 fl (81.0-99.0); MEAN CORPUSCULAR HGB 25.8 pg (27.0-31.0); MEAN CORPUSCULAR HGB CONC 30.8 g/dl (33.0-37.0); MEAN PLATELET VOLUME 11.2 fl (9.6-12.3); PLATELET COUNT AUTOMATED 153 10*3/uL (130-400); RED BLOOD COUNT 3.68 10*6/uL (4.10-5.10); WHITE BLOOD COUNT 4.5 10*3/uL (4.8-10.8)
[2020-11-07 07:19] LABS: BACTERIA 1+; RBC 21-30 rbc/hpf (0-2); WBC 16-20 wbc/hpf (0-5)
[2020-11-07 07:52] LABS: BURR CELLS FEW; OVALOCYTES FEW; PLATELET SUFFICIENCY NORMAL (NORMAL); TOTAL CELLS COUNTED 100 #CELLS
[2020-11-08] VITALS: BP 170/63
[2020-11-08] MEDS ORDERED: LISINOPRIL10 M1 PO (02:06)
[2020-11-08 06:46] LABS: EOS % 0.9 % (1.0-4.0); HEMATOCRIT 33.4 % (37.0-47.0); LYMPH # 1.5 10*3/uL (1.3-4.4); LYMPH % 33.2 % (27.0-41.0); MEAN CELL VOLUME 85.9 fl (81.0-99.0); MEAN CORPUSCULAR HGB 25.7 pg (27.0-31.0); MEAN CORPUSCULAR HGB CONC 29.9 g/dl (33.0-37.0); MEAN PLATELET VOLUME 11.2 fl (9.6-12.3); MONO # 0.6 10*3/uL (0.1-1.0); MONO % 12.1 % (3.0-9.0); NEUT # 2.5 10*3/uL (2.3-7.9); NEUT % 53.1 % (47.0-73.0); PLATELET COUNT AUTOMATED 158 10*3/uL (130-400); RED BLOOD COUNT 3.89 10*6/uL (4.10-5.10); RED CELL DISTRI WIDTH 14.1 % (0-14.5); WHITE BLOOD COUNT 4.6 10*3/uL (4.8-10.8)
[2020-11-08 07:28] LABS: ALBUMIN 2.7 gm/dl (3.1-4.5); BUN 12 mg/dl (7-24); CHLORIDE 108 mmol/L (98-107); CREATININE 0.88 mg/dL (0.55-1.02); POTASSIUM 3.7 mmol/L (3.5-5.1); SGOT/AST 17 IU/L (3-35); SGPT/ALT 12 U/L (12-78); SODIUM 141 mmol/L (136-145); TOTAL PROTEIN 6.5 gm/dL (6.4-8.2)
[2020-11-08 07:29] LABS: ALKALINE PHOSPHATASE 151 U/L (45-117)
[2020-11-08 08:00] VITALS: BP 164/56
[2020-11-08 12:00] VITALS: BP 158/52
[2020-11-08 16:00] VITALS: BP 164/52
[2020-11-08] MEDS ORDERED: KEPPRA750 MG PO (18:54)
== END 2020-11-08 20:00 | disposition home or self-care (01) ==
LOC: ED 14:42 → 5E 17:25 → EDHOLD 17:25 → 5E 11-07 08:51
PROVIDERS: Emergency Medicine; Student in an Organized Health Care Education/Training Program; ADMIT Internal Medicine; ATTEND Internal Medicine
DX: R55 Syncope and collapse (principal); E87.6 Hypokalemia; E87.8 Other disorders of electrolyte and fluid balance, not elsewhere classified; D64.9 Anemia, unspecified; E43 Unspecified severe protein-calorie malnutrition; R74.8 Abnormal levels of other serum enzymes; N39.0 Urinary tract infection, site not specified; I21.4 Non-ST elevation (NSTEMI) myocardial infarction; R31.9 Hematuria, unspecified; R00.1 Bradycardia, unspecified; I48.0 Paroxysmal atrial fibrillation; I10 Essential (primary) hypertension; G40.909 Epilepsy, unspecified, not intractable, without status epilepticus; K21.9 Gastro-esophageal reflux disease without esophagitis; Z79.01 Long term (current) use of anticoagulants; M19.90 Unspecified osteoarthritis, unspecified site; G20 Parkinson's disease; G30.9 Alzheimer's disease, unspecified; Z90.49 Acquired absence of other specified parts of digestive tract; Z90.710 Acquired absence of both cervix and uterus; Z95.5 Presence of coronary angioplasty implant and graft; Z98.890 Other specified postprocedural states

== ENCOUNTER 2021-04-28 14:30 | Emergency (ER) | payer OTHER ==
[~2021-04-28] VITALS: Ht 157.4 cm; Wt 82.1 kg
[~2021-04-28 14:30] MED LIST changes: +KEPPRA750 MG PO
[2021-04-28 17:11] LABS: BUN 11 mg/dl (7-24); CHLORIDE 102 mmol/L (98-107); CREATININE 1.05 mg/dL (0.55-1.02); POTASSIUM 2.9 mmol/L (3.5-5.1); SODIUM 138 mmol/L (136-145)
[2021-04-28] MEDS ORDERED: POTASSIUM CHLO20 ME3 PO (17:24)
== END 2021-04-28 17:29 | disposition home or self-care (01) ==
LOC: ED 14:30
PROVIDERS: Emergency Medicine
DX: S81.811A Laceration without foreign body, right lower leg, initial encounter (principal); S80.01XA Contusion of right knee, initial encounter; E87.6 Hypokalemia; I48.91 Unspecified atrial fibrillation; G20 Parkinson's disease; G30.9 Alzheimer's disease, unspecified; K21.9 Gastro-esophageal reflux disease without esophagitis; I10 Essential (primary) hypertension; I25.2 Old myocardial infarction; M19.90 Unspecified osteoarthritis, unspecified site; G40.909 Epilepsy, unspecified, not intractable, without status epilepticus; Z90.711 Acquired absence of uterus with remaining cervical stump; Z90.49 Acquired absence of other specified parts of digestive tract; Z79.899 Other long term (current) drug therapy; W19.XXXA Unspecified fall, initial encounter; Y93.89 Activity, other specified; Y92.89 Other specified places as the place of occurrence of the external cause; Y99.8 Other external cause status

== ENCOUNTER 2022-12-19 16:39 | Emergency (ER) | payer OTHER ==
[~2022-12-19] VITALS: Ht 157.4 cm; Wt 68.5 kg
[~2022-12-19 16:39] MED LIST changes: +POTASSIUM CHLO20 ME3 PO; +TOPROL XL25 MG PO
[2022-12-19 16:50] VITALS: BP 155/71
[2022-12-19 17:46] LABS: BASO % 0.5 % (0.0-1.0); EOS # 0.1 10*3/uL (0.0-0.4); EOS % 0.8 % (1.0-4.0); HEMATOCRIT 34.4 % (37.0-47.0); LYMPH # 1.7 10*3/uL (1.3-4.4); LYMPH % 22.4 % (27.0-41.0); MEAN CELL VOLUME 79.4 fl (81.0-99.0); MEAN CORPUSCULAR HGB 23.6 pg (27.0-31.0); MEAN CORPUSCULAR HGB CONC 29.7 g/dl (33.0-37.0); MEAN PLATELET VOLUME 10.6 fl (9.6-12.3); MONO # 0.8 10*3/uL (0.1-1.0); MONO % 10.2 % (3.0-9.0); NEUT % 65.8 % (47.0-73.0); PLATELET COUNT AUTOMATED 277 10*3/uL (130-400); RED BLOOD COUNT 4.33 10*6/uL (4.10-5.10); RED CELL DISTRI WIDTH 16.1 % (0-14.5); WHITE BLOOD COUNT 7.7 10*3/uL (4.8-10.8)
[2022-12-19 18:07] LABS: ALKALINE PHOSPHATASE 170 U/L (46-116); BUN 9 mg/dl (9-23); CHLORIDE 106 mmol/L (98-107); ETHYL ALCOHOL 3.1 mg/dl (<3); POTASSIUM 3.8 mmol/L (3.4-5.1); SGPT/ALT < 7 U/L (10-49); TOTAL PROTEIN 6.8 gm/dL (6.0-8.0)
[2022-12-19 18:53] LABS: BILIRUBIN Negative (Negative); BLOOD 2+ (Negative); CLARITY Clear (Clear); COLOR Yellow (Yellow); GLUCOSE Negative (Negative); KETONE Negative (Negative); LEUKO ESTERASE 1+ (Negative); NITRITE Negative (Negative); PH 5.5 (4.5-8.0); UROBILINOGEN 0.2 E.U./dl (0.0-1.0)
[2022-12-19 19:00] LABS: URINE AMPHETAMINES Negative (1000ng/ml); URINE BARBITURATES Negative (200ng/ml); URINE BENZODIAZEPINES Negative (200ng/ml); URINE CANNABINOIDS (THC) Negative (50ng/ml); URINE COCAINE Negative (300ng/ml); URINE METHADONE Negative (300ng/ml); URINE OPIATES Negative (300ng/ml); URINE PHENCYCLIDINE Negative (25ng/ml)
[2022-12-19 19:26] LABS: EPITHELIAL CELLS 41-50; RBC 21-30 rbc/hpf (0-2)
== END 2022-12-19 21:00 | disposition home or self-care (01) ==
LOC: ED 16:39
PROVIDERS: Physician Assistant
DX: F03.90 Unspecified dementia, unspecified severity, without behavioral disturbance, psychotic disturbance, mood disturbance, and anxiety (principal)

== ENCOUNTER → 2023-08-23 | Outpatient (CLI) | payer OTHER ==
[~2023-08-23] MED LIST changes: +ATORVASTATIN CA10 M1 PO; +AVPAK EXTENDED100 M1 PO; +CITALOPRAM20 MG PO; +JARDIANCE10 MG PO; +METOPROLOL SUCC50 M1 PO; +NAMENDA-5 PO
[2023-08-23 09:42] LABS: HEMATOCRIT 32.4 % (37.0-47.0); MEAN CELL VOLUME 73.1 fl (81.0-99.0); MEAN CORPUSCULAR HGB 21.4 pg (27.0-31.0); MEAN CORPUSCULAR HGB CONC 29.3 g/dl (33.0-37.0); MEAN PLATELET VOLUME 9.8 fl (9.6-12.3); PLATELET COUNT AUTOMATED 246 10*3/uL (130-400); RED BLOOD COUNT 4.43 10*6/uL (4.10-5.10); RED CELL DISTRI WIDTH 17.4 % (0-14.5)
[2023-08-23 09:55] LABS: MANUAL DIFF REFLEX YES
[2023-08-23 10:10] LABS: BASOPHILS 1 % (0-1); OVALOCYTES FEW; PLATELET SUFFICIENCY NORMAL (NORMAL); TOTAL CELLS COUNTED 100 #CELLS
[2023-08-23 10:36] LABS: ALKALINE PHOSPHATASE 163 U/L (46-116); BUN 8 mg/dl (9-23); CHLORIDE 104 mmol/L (98-107); CHOLESTEROL 152 mg/dL (<200); LDL CHOLESTEROL 80 mg/dL (9-159); POTASSIUM 4.1 mmol/L (3.4-5.1); SGPT/ALT < 7 U/L (5-49); TRIGLYCERIDES 89 mg/dl (<150)
== END | disposition home or self-care (01) ==
LOC: LAB 09:22
PROVIDERS: ATTEND Nurse Practitioner Family
DX: I10 Essential (primary) hypertension (principal); G30.9 Alzheimer's disease, unspecified; F02.80 Dementia in other diseases classified elsewhere, unspecified severity, without behavioral disturbance, psychotic disturbance, mood disturbance, and anxiety; G40.909 Epilepsy, unspecified, not intractable, without status epilepticus

== ENCOUNTER → 2023-09-19 | Outpatient (CLI) | payer OTHER ==
[2023-09-19 15:39] LABS: BASO % 0.5 % (0.0-1.0); EOS # 0.2 10*3/uL (0.0-0.4); EOS % 1.8 % (1.0-4.0); HEMATOCRIT 30.8 % (37.0-47.0); LYMPH % 22.7 % (27.0-41.0); MEAN CELL VOLUME 75.7 fl (81.0-99.0); MEAN CORPUSCULAR HGB 20.6 pg (27.0-31.0); MEAN CORPUSCULAR HGB CONC 27.3 g/dl (33.0-37.0); MEAN PLATELET VOLUME 10.3 fl (9.6-12.3); MONO % 11.6 % (3.0-9.0); NEUT # 5.5 10*3/uL (2.3-7.9); NEUT % 62.9 % (47.0-73.0); PLATELET COUNT AUTOMATED 360 10*3/uL (130-400); RED BLOOD COUNT 4.07 10*6/uL (4.10-5.10); RED CELL DISTRI WIDTH 18.5 % (0-14.5); WHITE BLOOD COUNT 8.7 10*3/uL (4.8-10.8)
== END | disposition home or self-care (01) ==
LOC: LAB 15:02
PROVIDERS: ATTEND Nurse Practitioner Family
DX: I10 Essential (primary) hypertension (principal); G40.909 Epilepsy, unspecified, not intractable, without status epilepticus; F02.80 Dementia in other diseases classified elsewhere, unspecified severity, without behavioral disturbance, psychotic disturbance, mood disturbance, and anxiety; D64.9 Anemia, unspecified

== ENCOUNTER → 2023-11-21 | Outpatient (CLI) | payer OTHER | END | disposition home or self-care (01) | LOC: LAB 15:42 | PROVIDERS: ATTEND Nurse Practitioner Family | DX: G40.909 Epilepsy, unspecified, not intractable, without status epilepticus (principal) ==

== ENCOUNTER → 2023-12-04 | Outpatient (CLI) | payer OTHER | END | disposition home or self-care (01) | LOC: LAB 11:07 | PROVIDERS: ATTEND Nurse Practitioner Family | DX: G40.909 Epilepsy, unspecified, not intractable, without status epilepticus (principal); D64.9 Anemia, unspecified; R31.9 Hematuria, unspecified; F02.80 Dementia in other diseases classified elsewhere, unspecified severity, without behavioral disturbance, psychotic disturbance, mood disturbance, and anxiety; Z90.49 Acquired absence of other specified parts of digestive tract ==

== ENCOUNTER 2024-03-28 12:20 | Emergency (ER) | payer OTHER ==
[~2024-03-28 12:20] MED LIST changes: +AVPAK LEVETIRA750 M1 PO; +DONEPEZIL HCL10 MG PO; +MEMANTINE HCL5 MG PO; +MONTELUKAST SOD10 MG PO; +VITAMIN D350 MC2 PO
== END 2024-03-28 19:23 | disposition left against medical advice (07) ==
LOC: ED 12:20
DX: S20.229A Contusion of unspecified back wall of thorax, initial encounter (principal); M25.511 Pain in right shoulder; W19.XXXA Unspecified fall, initial encounter; Y93.89 Activity, other specified; Y92.89 Other specified places as the place of occurrence of the external cause; Y99.8 Other external cause status

== ENCOUNTER → 2024-06-11 | Outpatient (CLI) | payer OTHER ==
[2024-06-11 09:01] LABS: BASO # 0.1 10*3/uL (0.0-0.1); BASO % 0.9 % (0.0-1.0); EOS # 0.1 10*3/uL (0.0-0.4); HEMATOCRIT 39.2 % (37.0-47.0); LYMPH # 1.7 10*3/uL (1.3-4.4); LYMPH % 24.2 % (27.0-41.0); MEAN CELL VOLUME 92.9 fl (81.0-99.0); MEAN CORPUSCULAR HGB 29.9 pg (27.0-31.0); MEAN CORPUSCULAR HGB CONC 32.1 g/dl (33.0-37.0); MEAN PLATELET VOLUME 11.8 fl (9.6-12.3); MONO # 0.7 10*3/uL (0.1-1.0); MONO % 9.4 % (3.0-9.0); NEUT # 4.4 10*3/uL (2.3-7.9); NEUT % 63.1 % (47.0-73.0); PLATELET COUNT AUTOMATED 244 10*3/uL (130-400); RED BLOOD COUNT 4.22 10*6/uL (4.10-5.10); RED CELL DISTRI WIDTH 12.9 % (0-14.5); WHITE BLOOD COUNT 6.9 10*3/uL (4.8-10.8)
[2024-06-11 09:53] LABS: ALKALINE PHOSPHATASE 126 U/L (46-116); BUN 22 mg/dl (9-23); CHLORIDE 98 mmol/L (98-107); CHOLESTEROL 127 mg/dL (<200); LDL CHOLESTEROL 74 mg/dL (9-159); POTASSIUM 2.7 mmol/L (3.4-5.1); TOTAL PROTEIN 6.7 gm/dL (6.0-8.0); TRIGLYCERIDES 81 mg/dl (<150)
[2024-06-11 10:13] LABS: SGPT/ALT < 7 U/L (5-49)
== END | disposition home or self-care (01) ==
LOC: LAB 08:46
PROVIDERS: ATTEND Nurse Practitioner Family
DX: I10 Essential (primary) hypertension (principal); F02.80 Dementia in other diseases classified elsewhere, unspecified severity, without behavioral disturbance, psychotic disturbance, mood disturbance, and anxiety; G40.909 Epilepsy, unspecified, not intractable, without status epilepticus

== ENCOUNTER → 2025-03-19 | Outpatient (CLI) | payer OTHER ==
[2025-03-19 09:13] LABS: BASO # 0.1 10*3/uL (0.0-0.1); BASO % 0.7 % (0.0-1.0); EOS # 0.1 10*3/uL (0.0-0.4); EOS % 1.4 % (1.0-4.0); HEMATOCRIT 39.1 % (37.0-47.0); MEAN CELL VOLUME 86.5 fl (81.0-99.0); MEAN CORPUSCULAR HGB 27.4 pg (27.0-31.0); MEAN CORPUSCULAR HGB CONC 31.7 g/dl (33.0-37.0); MEAN PLATELET VOLUME 11.3 fl (9.6-12.3); MONO # 0.7 10*3/uL (0.1-1.0); MONO % 8.9 % (3.0-9.0); NEUT # 4.9 10*3/uL (2.3-7.9); NEUT % 61.1 % (47.0-73.0); PLATELET COUNT AUTOMATED 225 10*3/uL (130-400); RED BLOOD COUNT 4.52 10*6/uL (4.10-5.10); WHITE BLOOD COUNT 8.1 10*3/uL (4.8-10.8)
[2025-03-19 09:44] LABS: ALKALINE PHOSPHATASE 135 U/L (46-116); BUN 12 mg/dl (9-23); CHLORIDE 101 mmol/L (98-107); CHOLESTEROL 149 mg/dL (<200); LDL CHOLESTEROL 86 mg/dL (9-159); POTASSIUM 2.8 mmol/L (3.4-5.1); TOTAL PROTEIN 6.9 gm/dL (6.0-8.0); TRIGLYCERIDES 104 mg/dl (<150)
[2025-03-19 09:58] LABS: SGPT/ALT < 7 U/L (5-49)
== END | disposition home or self-care (01) ==
LOC: LAB 08:53
PROVIDERS: ATTEND Nurse Practitioner Family
DX: I48.19 Other persistent atrial fibrillation (principal); R56.9 Unspecified convulsions; M25.519 Pain in unspecified shoulder; E78.5 Hyperlipidemia, unspecified

== ENCOUNTER → 2025-03-25 | Outpatient (CLI) | payer OTHER ==
[2025-03-25 17:39] LABS: POTASSIUM 4.4 mmol/L (3.4-5.1)
== END | disposition home or self-care (01) ==
LOC: LAB 17:12
PROVIDERS: ATTEND Nurse Practitioner Family
DX: E87.6 Hypokalemia (principal)

== ENCOUNTER → 2025-04-12 | Outpatient (CLI) | payer OTHER ==
[2025-04-12 18:17] LABS: BASO # 0.0 10*3/uL (0.0-0.1); BASO % 0.4 % (0.0-1.0); EOS # 0.1 10*3/uL (0.0-0.4); EOS % 1.2 % (1.0-4.0); MEAN CELL VOLUME 86.9 fl (81.0-99.0); MEAN CORPUSCULAR HGB 27.1 pg (27.0-31.0); MEAN PLATELET VOLUME 12.3 fl (9.6-12.3); MONO # 0.8 10*3/uL (0.1-1.0); MONO % 8.5 % (3.0-9.0); NEUT # 6.6 10*3/uL (2.3-7.9); NEUT % 66.5 % (47.0-73.0); NUCLEATED RED BLOOD CELL 0.0 % (0.0-0.0); NUCLEATED RED BLOOD CELL 0.0 10*3/uL (0.0-0.0); PLATELET COUNT AUTOMATED 223 10*3/uL (130-400); RED CELL DISTRI WIDTH 13.6 % (0-14.5)
[2025-04-12 18:38] LABS: BUN 18 mg/dl (9-23)
[2025-04-12 18:39] LABS: SGPT/ALT < 7 U/L (5-49); VITAMIN D, 25-HYDROXY 52.8 ng/mL (30-100)
== END | disposition home or self-care (01) ==
LOC: LAB 16:37
PROVIDERS: ATTEND Nurse Practitioner Family
DX: I12.9 Hypertensive chronic kidney disease with stage 1 through stage 4 chronic kidney disease, or unspecified chronic kidney disease (principal); N18.32 Chronic kidney disease, stage 3b; J30.2 Other seasonal allergic rhinitis; K21.9 Gastro-esophageal reflux disease without esophagitis; E55.9 Vitamin D deficiency, unspecified; E53.8 Deficiency of other specified B group vitamins; I48.20 Chronic atrial fibrillation, unspecified; G40.909 Epilepsy, unspecified, not intractable, without status epilepticus; Z79.899 Other long term (current) drug therapy

== ENCOUNTER → 2025-05-13 | Outpatient (CLI) | payer OTHER ==
[2025-05-13 16:27] LABS: BUN 14.0 mg/dl (9-23)
== END | disposition home or self-care (01) ==
LOC: LAB 14:57
PROVIDERS: ATTEND Nurse Practitioner Family
DX: R63.4 Abnormal weight loss (principal)

== ENCOUNTER 2025-06-30 16:26 | Emergency (ER) | payer OTHER ==
[~2025-06-30] VITALS: Ht 154.9 cm; Wt 78.0 kg
[2025-06-30 16:35] VITALS: BP 152/85
[2025-06-30] MEDS ORDERED: METOPROLOL SUCC50 M1 PO (16:39)
[2025-06-30] MEDS ORDERED: QUETIAPINE FUMA25 MG PO (16:40)
[2025-06-30] MEDS ORDERED: RIVASTIGMINE1 EAC2 T (16:41)
== END 2025-06-30 20:22 | disposition left against medical advice (07) ==
LOC: ED 16:26
DX: M54.50 Low back pain, unspecified (principal); Z53.21 Procedure and treatment not carried out due to patient leaving prior to being seen by health care provider

== ENCOUNTER → 2025-07-16 | Outpatient (CLI) | payer OTHER ==
[~2025-07-16] MED LIST changes: +QUETIAPINE FUMA25 MG PO; +RIVASTIGMINE1 EAC2 T
[2025-07-16 17:16] LABS: BUN 6.0 mg/dl (9-23)
== END | disposition home or self-care (01) ==
LOC: LAB 13:30
PROVIDERS: ATTEND Nurse Practitioner Family
DX: E87.6 Hypokalemia (principal)